=== PATIENT | female | born 1960 | race African-American/Black ===

== ENCOUNTER 2022-11-14 18:31 | Emergency (ER) | payer BC ==
--- OUTSIDE RECORDS SUMMARY | 2022-11-14 18:39 | XMS REPORT | Continuity of Care Document ---
:1960 Author Organization [facility] t Address [address] [place] [address] Care Team Providers Name Role Phone Elvi Jacobson Primary Care Physician JAYE BONE Attending Clinician Unavailable DELANO HOYOS Attending Clinician Unavailable [email or web address] Attending Clinician Unavailable Chio Holt Attending Clinician [phone] JAXON GIVENS Attending Clinician Unavailable JAYE BONE Attending Clinician Unavailable Linh Demarco Attending Clinician Unavailable MANOHAR SMILEY Attending Clinician Unavailable Baldev Osei MD, [facility] Attending Clinician Unavailable CIELO NEUMANN Attending Clinician Unavailable PROSPER RAMESH M.D. Attending Clinician Unavailable Prosper Ramesh Attending Clinician LATASHA DOW M.D. Attending Clinician Unavailable MAGUI, NEO, M.D. Attending Clinician Unavailable LIBERTAD VEE M.D. Attending Clinician Unavailable OLIVE SALES Attending Clinician Unavailable Libertad Vee Attending Clinician [email or web address] Admitting Clinician Unavailable Linh Demarco Admitting Clinician Unavailable Prosper Ramesh Admitting Clinician OLI BERGMAN WANG-HENRYTRESSA Admitting Clinician Unavail able Libertad Vee Admitting Clinician Payers Payer Name Policy Type Policy Number Effective Date Expiration Date S ource BCBSTX PPO AND [id number] 2021 2024 00:00:00 OUT OF STATE 00:00:00 [place] [id number] 2021 [place] 00:00:00 Problems Condition Condition Condition Status Onset Resolution Last Treating Co mments Source Name Details Category Date Date Treatment Clinician Date Anxiety Anxiety Problem Active [facility] 00:00: 00 Hypertensi Hypertensi Problem Active [facility] 9-14 Medical disorder Disorder 00:00: 00 Atrial Atrial Problem Active [facility] fibrillati Fibrillati 9-14 Me dical on on 00:00: 00 Irregular Irregular Problem Active [facility] via heart beat Heart Beat -14 Me dical 00:00: 00 Essential Essential Disease Active [facility] hypertens[facility] hypertensi 6-12 [facility] on on 00:00: Medical 00 Center GERD GERD Disease Active [facility] (gastroeso (gastroeso 6-12 Teresa kes phageal phageal 00:00: Medical reflux reflux 00 Center disease) disease) Obesity Obesity Disease Active [facility] Chest Chest Disease Active [facility] pain, pain, [facility] unspecifie unspecifie 00:00: Me dical d type d type 00 Center [id number], [id number], Diagnosis Active 2014-03-28 M emoria MORBID MORBID 03-07 14:45:00 l OBESITY OBESITY 00:00: [place] Active 03/07/2014 [facility] [place][note 2] History of History of Problem Resolve [facility] hypertensi hypertensi d Ph ysici on on ans History of History of Problem Resolve UT Joint pain Joint pain d Ph ysici ans History of History of Problem Resolve [facility] Reflux Reflux d Physici ans Status Status Problem Active [facility] post post Physici gastric gastric ans bypass for bypass for obesity obesity Vitamin Vitamin Problem Active UT deficiency deficiency Ph ysici ans Right knee Right knee Problem Active U T pain pain Physici ans Other tear Other tear Problem Active U T of lateral of lateral Ph ysici meniscus meniscus ans of right of right knee as knee as current current injury, injury, subsequent subsequent encounter encounter Primary Primary Problem Active [facility] localized localized Phys ici osteoarthr osteoarthr an s itis of itis of both knees both knees Malabsorpt Malabsorpt Problem Active U T ion ion Physici ans swelling swelling Problem Active 2014-04-01 Memoria in in 20:28:37 l legs(Confi legs(Confi He rmmark anthony rmed) rmed) Active Problem 04/01/2014 [facility] [place][note 2] Congestion Congestio Problem Active 2014-04-01 Memoria of throat n of 20:28:37 l (finding) throat Thomas (finding) Active Problem 04/01/2014 [facility] [place][note 2] Morbid Morbid Problem Active 2014-04-01 Hola lawrence obesity obesity 20:28:37 l (disorder) (disorder) He rmann Active Problem 04/01/2014 [facility] [place][note 2] Reflux Reflux Problem Active 2014-04-01 Mem oria (finding) (finding) 20:28:37 l Active Thomas Problem 04/01/2014 [facility] [place][note 2] Irregular Irregular Problem Active 2018-07-22 Memoria heart rate heart rate 04:01:11 l (finding) (finding) Herm mark anthony Active Problem 07/22/2018 [facility] Palpitatio Palpitati Problem Active 2018-07-22 Memoria ns ons 04:01:11 l (finding) (finding) Herm mark anthony Active Problem 07/22/2018 [facility] MORBID MORBID Diagnosis Active 2014-03-28 Me moria OBESITY OBESITY 14:45:00 l Active [facility] [place] History of Past Illness Condition Condition Condition Status Onset Resolution Last Treating Co mments Source Name Details Category Date Date Treatment Clinician Date Other tear Other Problem 2017-0 2018-07-22 2018-07-22 Memoria of medial tear of - 04:01:11 04:01:11 l meniscus, medial 05:00: Thomas current meniscus, 00 injury, current right injury, knee, right initial knee, encounter initial encounter 07/18/2018 8 [facility] Allergies, Adverse Reactions, Alerts Allergy Allergy Status Severity Reaction(s) Onset Inactive Treating Comm ents Source Name Type Date Date Clinician No Known DA Active U 2015- [facility]ie 7- [facility] NO KNOWN Allergy Active [facility] Social History Social Habit Start Date Stop Date Quantity Comments Source History SDOH [facility] Alcohol Frequency Medical Center History SDOH [facility] Alcohol Std Drinks Medica l Center History SDOH [facility] Alcohol Binge Medical [address] [facility] Alcohol intake 2018-04-21 2018-04-21 [facility]00 alcohol (finding) [facility] Center Tobacco use and 2018-04-18 2018-04-[address] [facility] kes exposure 00:00:00 00:00:00 Medical Center History SDOH 2018-04-18 2018-04-[address] [facility] Alcohol Comment 00:00:00 00:00:00 Medical C enter Sex Assigned At [address] [facility] 00:00:00 00:00:00 Medical Center Smoking Status Start Date Stop Date Source Social History [facility] Medications Ordered Filled Start Stop Current Ordering Indication Dosage Frequency Signature Comments Components Source Medication Medication Date Date Medication? Clinician (SIG) Name Name Sucralfate Sucralfate Yes KRISTY TAKE 1 UT 1 GM Oral 1 GM Oral 5-28 [facility] TABLET 4 Physici Tablet Tablet 00:00: TIMES ans 00 DAILY, BEFORE MEALS AND AT BEDTIME. Crush pill and add to 5 ml of water. Aspirin No 81 mg, Memoria 9-13 Tab-DR, l 14:00: Oral, Thomas 00 Daily, first dose 07/21/18 9:00:00 CDT, To help prevent blood clots unless you are already on a blood thinner Aspirin No 81 mg, Memoria 9-13 Tab-DR, l 14:00: Oral, [place] 00 Daily, first dose 07/21/18 9:00:00 CDT, To help prevent blood clots unless you are already on a blood thinner Misc 2018-0 No 900 mL, Memoria Medication 9-12 Soln-IV, l 15:27: IV, Once, first dose 07/20/18 10:27:00 CDT, stop date 07/20/18 10:27:00 CDT Misc 2018-0 No 900 mL, Memoria Medication - Soln-IV, l 15:27: IV, Once, first dose 07/20/18 10:27:00 CDT, stop date 07/20/18 10:27:00 CDT Demerol HCl 2018-0 No 12.5 mg = M emoria 9-12 0.5 mL, l 15:21: Injection, Thomas 00 IV Push, q5min PRN for Pain Mild (1-3), order duration: 4 doses, first dose 07/20/18 10:21:00 CDT, stop date Limited # of times Morphine 2018-0 No 1 mg = Memoria 9-12 0.25 mL, l 15:21: Injection, [place] 00 IV Push, q5min PRN for Pain Moderate (4-6), order duration: 5 doses, first dose 07/20/18 10:21:00 CDT, stop date Limited # of times Ondansetron 2018-0 No 4 mg = 2 Me moria 9-12 mL, l 15:21: Injection, Thomas 00 IV Push, q30min PRN for nausea/vom iting, order duration: 2 doses, first dose 07/20/18 10:21:00 CDT, stop date Limited # of times Demerol HCl 2018-0 No 12.5 mg = M emoria 9-12 0.5 mL, l 15:21: Injection, [place] 00 IV Push, q5min PRN for Pain Mild (1-3), order duration: 4 doses, first dose 07/20/18 10:21:00 CDT, stop date Limited # of times Morphine 2018-0 No 1 mg = Memoria 9-12 0.25 mL, l 15:21: Injection, Thomas 00 IV Push, q5min PRN for Pain Moderate (4-6), order duration: 5 doses, first dose 07/20/18 10:21:00 CDT, stop date Limited # of times Ondansetron 2018-0 No 4 mg = 2 Me moria 9-12 mL, l 15:21: Injection, [place] 00 IV Push, q30min PRN for nausea/vom iting, order duration: 2 doses, first dose 07/20/18 10:21:00 CDT, stop date Limited # of times neostigmine 2018-0 No 5 mg = 5 Me moria 9-12 mL, l 15:09: Injection, Thomas 00 IV, Once, first dose 07/20/18 10:09:00 CDT, stop date 07/20/18 10:09:00 CDT glycopyrrol 2018-0 No 0.8 mg = 4 Memoria ate 9-12 mL, l 15:09: Injection, [place] 00 IV, Once, first dose 07/20/18 10:09:00 CDT, stop date 07/20/18 10:09:00 CDT neostigmine 2018-0 No 5 mg = 5 Me moria 9-12 mL, l 15:09: Injection, [place] 00 IV, Once, first dose 07/20/18 10:09:00 CDT, stop date 07/20/18 10:09:00 CDT glycopyrrol 2018-0 No 0.8 mg = 4 Memoria ate 9-12 mL, l 15:09: Injection, [place] 00 IV, Once, first dose 07/20/18 10:09:00 CDT, stop date 07/20/18 10:09:00 CDT ketorolac 2018-0 No 30 mg = 1 Mem oria 9-12 mL, l 15:06: Injection, [place] 00 IV, Once, first dose 07/20/18 10:06:00 CDT, stop date 07/20/18 10:06:00 CDT ketorolac 2018-0 No 30 mg = 1 Mem oria 9-12 mL, l 15:06: Injection, Thomas 00 IV, Once, first dose 07/20/18 10:06:00 CDT, stop date 07/20/18 10:06:00 CDT ceFAZolin 2018-0 No 2 gm, Memoria 9-12 Soln-IV, l 14:34: IV, Once, [place] 00 first dose 07/20/18 9:34:00 CDT, stop date 07/20/18 9:34:00 CDT ceFAZolin 2018-0 No 2 gm, Memoria 12 Soln-IV, l 14:34: IV, Once, first dose 07/20/18 9:34:00 CDT, stop date 07/20/18 9:34:00 CDT ondansetron 2018-0 No 4 mg = 2 Me moria 9-12 mL, l 14:30: Injection, [place] 00 IV, Once, first dose 07/20/18 9:30:00 CDT, stop date 07/20/18 9:30:00 CDT dexamethaso 2018-0 No 4 mg = 1 Me moria ne 9-12 mL, l 14:30: Injection, [place] 00 IV, Once, first dose 07/20/18 9:30:00 CDT, stop date 07/20/18 9:30:00 CDT ondansetron 2018-0 No 4 mg = 2 Me moria 9-12 mL, l 14:30: Injection, [place] 00 IV, Once, first dose 07/20/18 9:30:00 CDT, stop date 07/20/18 9:30:00 CDT dexamethaso 2018-0 No 4 mg = 1 Me moria ne 9-12 mL, l 14:30: Injection, Thomas 00 IV, Once, first dose 07/20/18 9:30:00 CDT, stop date 07/20/18 9:30:00 CDT rocuronium 2018-0 No 30 mg = 3 Me moria 9-12 mL, l 14:25: Injection, [place] 00 IV, Once, first dose 07/20/18 9:25:00 CDT, stop date 07/20/18 9:25:00 CDT propofol 2018-0 No 200 mg = Memor ia 07-20 20 mL, l 14:25: Emulsion, Thomas 00 IV, Once, first dose 07/20/18 9:25:00 CDT, stop date 07/20/18 9:25:00 CDT lidocaine 2018-0 No 4 mL, Memoria 12 Injection, l 14:25: IV, Once, first dose 07/20/18 9:25:00 CDT, stop date 07/20/18 9:25:00 CDT fentaNYL 2018-0 No 100 mcg = Hola lawrence 9-12 2 mL, l 14:25: Injection, Thomas 00 IV, Once, first dose 07/20/18 9:25:00 CDT, stop date 07/20/18 9:25:00 CDT rocuronium 2018-0 No 30 mg = 3 Me moria 9-12 mL, l 14:25: Injection, [place] 00 IV, Once, first dose 07/20/18 9:25:00 CDT, stop date 07/20/18 9:25:00 CDT propofol 2018-0 No 200 mg = Memor ia 9-12 20 mL, l 14:25: Emulsion, [place] 00 IV, Once, first dose 07/20/18 9:25:00 CDT, stop date 07/20/18 9:25:00 CDT lidocaine 2018-0 No 4 mL, Memoria -12 Injection, l 14:25: IV, Once, Thomas 00 first dose 07/20/18 9:25:00 CDT, stop date 07/20/18 9:25:00 CDT fentaNYL 2018-0 No 100 mcg = Hola lawrence 9-12 2 mL, l 14:25: Injection, Thomas 00 IV, Once, first dose 07/20/18 9:25:00 CDT, stop date 07/20/18 9:25:00 CDT Acetaminoph 2018-0 Yes See Memori a en 300 MG / 12 Instructio l Codeine 14:15: ns, 1-2 Thomas Phosphate 00 Tab(s), 30 MG Oral PO, Every Tablet 4 hours, [Tylenol as needed with for pain, Codeine #3] # 20 tabs, 1 Refill(s) Acetaminoph 2018-0 Yes See Memori a en 300 MG / 912 Instructio l Codeine 14:15: ns, 1-2 [place] Phosphate 00 Tab(s), 30 MG Oral PO, Every Tablet 4 hours, [Tylenol as needed with for pain, Codeine #3] # 20 tabs, 1 Refill(s) fentaNYL 2018-0 No 100 mcg = Hola lawrence 9-12 2 mL, l 14:12: Injection, Thomas 00 IV, Once, first dose 07/20/18 9:12:00 CDT, stop date 07/20/18 9:12:00 CDT midazolam 2018-0 No 2 mg = 2 Hola lawrence 9-12 mL, l 14:12: Injection, [place] 00 IV, Once, first dose 07/20/18 9:12:00 CDT, stop date 07/20/18 9:12:00 CDT fentaNYL 2018-0 No 100 mcg = Hola lawrence 9-12 2 mL, l 14:12: Injection, Thomas 00 IV, Once, first dose 07/20/18 9:12:00 CDT, stop date 07/20/18 9:12:00 CDT midazolam 2018-0 No 2 mg = 2 Hola lawrence 9-12 mL, l 14:12: Injection, [place] 00 IV, Once, first dose 07/20/18 9:12:00 CDT, stop date 07/20/18 9:12:00 CDT Pain Ease 2018-0 No 1 sprays, Mem oria topical 9-12 [place], l spray 14:00: TOP, Once, Vinay n 00 first dose 07/20/18 9:00:00 CDT, stop date 07/20/18 9:00:00 CDT, Apply topically for 4 - 10 seconds from a distance of 3 - 7 inches from the procedure site Cefazolin 2018-0 No 2 gm, Memoria 9-12 Soln-IV, l 14:00: IV [place] 00 Piggyback, Once, infuse over 30 minutes, first dose 07/20/18 9:00:00 CDT, stop date 07/20/18 9:00:00 CDT, Prophylaxi s Pain Ease 2017-0 No 1 sprays, Mem oria topical 9-12 [place], l spray 14:00: TOP, Once, Vinay n 00 first dose 07/20/18 9:00:00 CDT, stop date 07/20/18 9:00:00 CDT, Apply topically for 4 - 10 seconds from a distance of 3 - 7 inches from the procedure site Cefazolin 2018-0 No 2 gm, Memoria 9-12 Soln-IV, l 14:00: IV Thomas 00 Piggyback, Once, infuse over 30 minutes, first dose 07/20/18 9:00:00 CDT, stop date 07/20/18 9:00:00 CDT, Prophylaxi s LR 1,000 mL No 1,000 mL, M emoria 9-12 IV, 100 l 13:12: mL/hr, Thomas 00 start date 07/20/18 8:12:00 CDT, For Adults LR 1,000 mL No 1,000 mL, M emoria 9-12 IV, 100 l 13:12: mL/hr, start date 07/20/18 8:12:00 CDT, For Adults Sucralfate Yes = 2 tsp, Mem oria 100 MG/ML 9-10 Oral, BID, l Oral 22:51: 0 Thomas Suspension 00 Refill(s) [Carafate] Sucralfate Yes = 2 tsp, Mem oria 100 MG/ML 9-10 Oral, BID, l Oral 22:51: 0 Thomas Suspension 00 Refill(s) [Carafate] Multi 2017-0 Yes Oral, TID, Memori a Vitamin+ 9-10 0 l 22:46: Refill(s) [place] calcium (as Yes 250 mg = 1 Memoria calcium 9-10 tabs, l citrate) 22:46: Oral, Thomas 250 mg oral 00 Daily, 0 tablet Refill(s) Multi 2017-0 Yes Oral, TID, Memori a Vitamin+ 9-10 0 l 22:46: Refill(s) Thomas 00 calcium (as 20180 Yes 250 mg = 1 Memoria calcium 9-10 tabs, l citrate) 22:46: Oral, Thomas 250 mg oral 00 Daily, 0 tablet Refill(s) Vitamin D3 2018-0 Yes Oral, Memori a 9-10 Daily, 0 l 22:45: Refill(s) Thomas Vitamin D3 2018-0 Yes Oral, Memori a 9-10 Daily, 0 l 22:45: Refill(s) [place] 00 [place]-3 2018-0 Yes Oral, BID, Hola lawrence oral 9-10 0 l capsule 22:44: Refill(s) Vaishali nn 00 Metoprolol 2017-0 Yes 12.5 mg, Mem oria 9-10 Oral, l 22:44: Daily, 0 Thomas 00 Refill(s) [place]-3 2018-0 Yes Oral, BID, Hola lawrence oral 9-10 0 l capsule 22:44: Refill(s) Vaishali nn 00 Metoprolol Yes 12.5 mg, Mem oria 9-10 Oral, l 22:44: Daily, 0 Thomas 00 Refill(s) pantoprazol Yes TAKE [address] [facility] 7-17 TABLET [facility] (PROTONIX) 00:00: MOUTH Medica l 40 MG 00 DAILY Center tablet pantoprazol Yes TAKE [address] [facility] 7-17 TABLET BY [facility] (PROTONIX) 00:00: MOUTH Medica l 40 MG 00 DAILY Center tablet pantoprazol Yes TAKE [address] [facility] 7-17 TABLET BY [facility] (PROTONIX) 00:00: MOUTH Medica l 40 MG 00 DAILY Center tablet Omeprazole Omeprazole Yes KRISTY 1 QD TAKE 1 UT 40 MG Oral 40 MG Oral 6-25 [facility] CAP[facility]LE Physici Capsule Capsule 00:00: DAILY for an s Delayed Delayed 00 3 months Release Release Carafate 1 Carafate 1 Yes LIBERTAD 10 Q0.25D TAKE 10 ML UT GM/10ML GM/10ML 6-25 PRIMOMO 4 TIMES Phy sici Oral Oral 00:00: M.D. DAILY ans Suspension Suspension 00 metoprolol Yes 50mg QD Take [address] (TOPROL-XL) 6-14 by mouth Luke s 50 MG 24 hr 07:27: daily. Medi margarette tablet [address] [place] [address] aspirin 81 Yes QD Take by [facility] mg Tab 6-14 [facility] 07:27: daily. [address] losartan Yes 25mg QD Take [address] (COZAAR) 25 6-14 by mouth Luke s MG tablet 07:27: daily. Medica l [address] [place] [address] spironolact Yes 25mg QD Take [address] one 6-14 by mouth [facility] (ALDACTONE) 07:27: daily. Medi margarette 25 MG [address] [place] tablet esomeprazol Yes 20mg QD Take [address] [facility] (NEXIUM) 6-14 by mouth [facility]ukes 20 MG 07:27: daily. Medical capsule [address] [place] [address] CALCIUM Yes Take by [facility] ACETATE 6-14 mouth. [facility] ORAL 07:27: [address] metoprolol Yes 50mg QD Take [address] (TOPROL-XL) 6-14 by mouth Luke s 50 MG 24 hr 07:27: daily. Medi margarette tablet [address] [place] [address] aspirin 81 2018-0 Yes QD Take by [facility] mg Tab 6-14 [facility] 07:27: daily. [address] losartan 2018-0 Yes 25mg QD Take [address] (COZAAR) 25 6-14 by mouth Luke s MG tablet 07:27: daily. Medica l [address] [place] [address] spironolact 2018-0 Yes 25mg QD Take [address] one 6-14 by mouth [facility] (ALDACTONE) 07:27: daily. Medi margarette 25 MG [address] [place] tablet esomeprazol 2018-0 Yes 20mg QD Take [address] [facility] (NEXIUM) 6-14 by mouth [facility]ukes 20 MG 07:27: daily. [address] CALCIUM 0 Yes Take by [facility] ACETATE 6-14 mouth. [facility] ORAL 07:27: [address] metoprolol 2018-0 Yes 50mg QD Take [address] (TOPROL-XL) 6-14 by mouth Luke s 50 MG 24 hr 07:27: daily. Medi margarette tablet [address] [place] [address] aspirin 81 0 Yes QD Take by [facility] mg Tab 6-14 [facility] 07:27: daily. [address] losartan 2018-0 Yes 25mg QD Take [address] (COZAAR) 25 6-14 by mouth Luke s MG tablet 07:27: daily. Medica [address] spironolact 2018-0 Yes 25mg QD Take [address] one 6-14 by mouth [facility] (ALDACTONE) 07:27: daily. Medi margarette 25 MG [address] [place] tablet esomeprazol 2018-0 Yes 20mg QD Take [address] [facility] (NEXIUM) 6-14 by mouth [facility]ukes 20 MG 07:27: daily. [facility] capsule [address] [place] [address] CALCIUM 2017-0 Yes Take by [facility] ACETATE 6-14 mouth. [facility]ukes ORAL 07:27: [address] aspirin 81 2018-0 Yes 81mg QD Take [address] MG EC 6-13 by mouth [facility]ukes tablet 12:27: daily. [address] multivitami 2018-0 Yes 1{tbl} QD Take [address] [facility] 6-13 tablet by [facility]ukes (MULTIVITAM 12:27: mouth Medic al IN) per 35 daily. Center tablet calcium 2018-0 Yes 1{tbl} Take [address] carbonate-v 6-13 tablet by Betsy es itamin D3 12:27: mouth 2 Medic al (CALCIUM- 35 (two) Center TAMIN D) times 500 daily with mg(1,250mg) breakfast -200 unit and per tablet dinner. omega-3 2018-0 Yes 2g Q.5D Take [address] fatty 6-13 by mouth 2 [facility] acids-fish 12:27: (two) Medica l oil 35 times Center 340-1,000 daily. mg Cap per capsule aspirin 81 2018-0 Yes 81mg QD Take [address] MG EC 6-13 by mouth [facility]ukes tablet 12:27: daily. [address] multivitami Yes 1{tbl} QD Take [address] n 6-13 tablet by [facility]ukes (MULTIVITAM 12:27: mouth Medic al IN) per 35 daily. [place] tablet calcium 0 Yes 1{tbl} Take [address] carbonate-v 6-13 tablet by Betsy es itamin D3 12:27: mouth 2 Medic al (CALCIUM- 35 (two) Center TAMIN D) times 500 daily with mg(1,250mg) breakfast -200 unit and per tablet dinner. omega-3 2018-0 Yes 2g Q.5D Take [address] fatty 6-13 by mouth 2 [facility] acids-fish 12:27: (two) Medica l oil 35 times Center 340-1,000 daily. mg Cap per capsule aspirin 81 2018-0 Yes 81mg QD Take [address] MG EC 6-13 by mouth [facility]ukes tablet 12:27: daily. [address] multivitami 0 Yes 1{tbl} QD Take [address] n 6-13 tablet by [facility]ukes (MULTIVITAM 12:27: mouth Medic al IN) per 35 daily. [place] tablet calcium 2018-0 Yes 1{tbl} Take [address] carbonate-v 6-13 tablet by Betsy es itamin D3 12:27: mouth 2 Medic al (CALCIUM- 35 (two) Center TAMIN D) times 500 daily with mg(1,250mg) breakfast -200 unit and per tablet dinner. omega-3 2018-0 Yes 2g Q.5D Take [address] fatty 6-13 by mouth 2 [facility] acids-fish 12:27: (two) Medica l oil 35 times Center 340-1,000 daily. mg Cap per capsule metoprolol Yes TK [address] (TOPROL-XL) 5-21 ONCE D [facility] 25 MG 24 hr 00:00: Medica l tablet 00 Center metoprolol Yes TK [address] [facility] [address] [facility] (TOPROL-XL) 5-21 ONCE D [facility] 25 MG 24 hr 00:00: Medica l tablet 00 Center metoprolol Yes TK [address] [facility] (TOPROL-XL) 5-21 ONCE D [facility] 25 MG 24 hr 00:00: Medica l tablet 00 [place] Magnesium Magnesium Yes LIBERTAD Take 400mg UT 400 MG CAPS 400 MG CAPS 8-13 PRIMOMO QD x 7 Physici 00:00: M.D. days Acetaminoph Yes 15 ml, PO, Memoria en 21.7 5-23 Q4H, Pain, l MG/ML / 14:37: # 240 mL, Vaishali nn Hydrocodone 00 0 Bitartrate Refill(s) 0.5 MG/ML Oral Solution Acetaminoph Yes 15 ml, PO, Memoria en 21.7 5-23 Q4H, Pain, l MG/ML / 14:37: # 240 mL, Vaishali nn Hydrocodone 00 0 Bitartrate Refill(s) 0.5 MG/ML Oral Solution Enoxaparin No Notes: Memor ia 5-22 (Same as: l 05:29: Lovenox) Enoxaparin No Notes: Memor ia 5-22 (Same as: l 05:29: Lovenox) Ketorolac No 4 days Memor ia 5-21 l 23:00: Ketorolac No 4 days Memor ia 5-21 l 23:00: Hydromorpho No 6 mg, 30 Me moria ne 5-21 mL, Route: l 17:30: IV, STAFFING ADMINISTRATOR Dose: 0.2 mg, STAFFING ADMINISTRATOR Lockout: 10 minutes, 4 Hour Limit (In MG): 4, Drug Form: INJ, Continuous , Start date: 03/28/14 12:30:00, Duration: 30 day, Stop date: 04/27/14 12:29:00 Hydromorpho No 6 mg, 30 Me moria ne 5-21 mL, Route: l 17:30: IV, STAFFING ADMINISTRATOR Dose: 0.2 mg, STAFFING ADMINISTRATOR Lockout: 10 minutes, 4 Hour Limit (In MG): 4, Drug Form: INJ, Continuous , Start date: 03/28/14 12:30:00, Duration: 30 day, Stop date: 04/27/14 12:29:00 Acetaminoph No Notes: Do M emoria en 33.3 - not exceed l MG/ML / 17:28: 4gm/day of Herm mark anthony Hydrocodone 00 acetaminop Bitartrate hen. (Same 0.5 MG/ML as: [place] Oral 325/7.5) Solution [Lortab 7.5/500] Lactated No 1,000 mL, Hola lawrence Ringers IV 03-28 Rate: 80 l 1,000 mL 17:28: ml/hr, Infuse over: 12.5 hr, Route: IV, Dosing Weight 159.744 kg, Total Volume: 1,000, Priority: STAT, Start date: 03/28/14 12:28:00, Duration: 30 day, Stop date: 04/27/14 12:27:00 Calcium No 1,000 mL, Memor ia Chloride 03-28 Rate: 125 l 0.0014 17:28: ml/hr, MEQ/ML / 00 Infuse Potassium over: 8 Chloride hr, Route: 0.004 IV, Dosing MEQ/ML / Weight Sodium 159.744 Chloride kg, Total 0.103 Volume: MEQ/ML / 1,000, Sodium Start Lactate date: 0.028 03/28/14 MEQ/ML 12:28:00, Injectable Duration: Solution 30 day, Stop date: 04/27/14 12:27:00 Ondansetron No Notes: Hola lawrence 5-21 (Same as: l 17:28: Zofran) Thomas Promethazin No Notes: Do M emoria e -21 not give l 17:28: IV push. Thomas 00 (Same as: Phenergan) Acetaminoph No Notes: Max Memoria en -21 acetaminop l 17:28: hen = 4000 Thomas 00 mg/day (4 gm/day). (Same as: Tylenol) Acetaminoph No Notes: Do M emoria en 33.3 03-28 not exceed l MG/ML / 17:28: 4gm/day of Herm mark anthony Hydrocodone 00 acetaminop Bitartrate hen. (Same 0.5 MG/ML as: [place] Oral 325/7.5) Solution [Lortab 7.5/500] Lactated No 1,000 mL, Hola lawrence Ringers IV 03-28 Rate: 80 l 1,000 mL 17:28: ml/hr, Thomas Infuse over: 12.5 hr, Route: IV, Dosing Weight 159.744 kg, Total Volume: 1,000, Priority: STAT, Start date: 03/28/14 12:28:00, Duration: 30 day, Stop date: 04/27/14 12:27:00 Calcium No 1,000 mL, Memor ia Chloride 03-28 Rate: 125 l 0.0014 17:28: ml/hr, Thomas MEQ/ML / 00 Infuse Potassium over: 8 Chloride hr, Route: 0.004 IV, Dosing MEQ/ML / Weight Sodium 159.744 Chloride kg, Total 0.103 Volume: MEQ/ML / 1,000, Sodium Start Lactate date: 0.028 03/28/14 MEQ/ML 12:28:00, Injectable Duration: Solution 30 day, Stop date: 04/27/14 12:27:00 Ondansetron No Notes: Hola lawrence -21 (Same as: l 17:28: Zofran) Thomas Promethazin No Notes: Do M emoria e 03-28 not give l 17:28: IV push. [place] 00 (Same as: Phenergan) Acetaminoph No Notes: Max Memoria en -21 acetaminop l 17:28: hen = 4000 [place] 00 mg/day (4 gm/day). (Same as: Tylenol) Acetaminoph No Notes: Hola lawrence en 5-21 Infuse l 13:44: over 15 Thomas 00 minutes Do not exceed 4gm/day of acetaminop hen Labetalol No Notes: Memori a 5-21 (Same as: l 13:44: Normodyne, [place] 00 Trandate) Push over 2 minutes Give bolus over 2-3 minutes. Ondansetron No Notes: Hola lawrence 5-21 (Same as: l 13:44: Zofran) [place] Albuterol No Notes: SEE Me moria 0.83 MG/ML 5-21 RT l Inhalant 13:44: DOCUMENTAT Her chatman Solution 00 ION (Same as: Proventil) Naloxone No Notes: Memoria 5-21 Same as l 13:44: Narcan [place] Flumazenil No Notes: Memor ia 5-21 (Same as: l 13:44: Romazicon) Thomas Ketorolac No 4 days Memor ia 5-21 l 13:44: [place] 00 Morphine No Notes: Memoria 5-21 (Same as: l 13:44: MORPhine Thomas 00 Sulfate) Hydromorpho No Notes: Hola lawrence ne -21 (Same as: l 13:44: Dilaudid) Thomas Calcium No 1,000 mL, [facility]or ia Chloride - Rate: 125 l 0.0014 13:44: ml/hr, [place] MEQ/ML / 00 Infuse Potassium over: 8 Chloride hr, Route: 0.004 IV, Dosing MEQ/ML / Weight Sodium 159.744 Chloride kg, Total 0.103 Volume: MEQ/ML / 1,000, Sodium Start Lactate date: 0.028 03/28/14 MEQ/ML 8:44:00, Injectable Duration: Solution 30 day, Stop date: 04/27/14 8:43:00 Acetaminoph No Notes: Hola lawrence en 5-21 Infuse l 13:44: over 15 [place] 00 minutes Do not exceed 4gm/day of acetaminop hen Labetalol No Notes: Memori a 5-21 (Same as: l 13:44: Normodyne, Thomas 00 Trandate) Push over 2 minutes Give bolus over 2-3 minutes. Ondansetron No Notes: Hola lawrence -21 (Same as: l 13:44: Zofran) Albuterol No Notes: SEE Me moria 0.83 MG/ML - RT l Inhalant 13:44: DOCUMENTAT Her chatman Solution 00 ION (Same as: Proventil) Naloxone No Notes: Memoria - Same as l 13:44: Narcan Flumazenil No Notes: Memor ia -21 (Same as: l 13:44: Romazicon) Ketorolac No 4 days Mem[facility] ia -21 l 13:44: [place] 00 Morphine No Notes: Memoria -21 (Same as: l 13:44: MORPhine Sulfate) Hydromorpho No Notes: Hola lawrence ne - (Same as: l 13:44: Dilaudid) Calcium No 1,000 mL, [facility] Chloride 03-28 Rate: 125 l 0.0014 13:44: ml/hr, [place] MEQ/ML / 00 Infuse Potassium over: 8 Chloride hr, Route: 0.004 IV, Dosing MEQ/ML / Weight Sodium 159.744 Chloride kg, Total 0.103 Volume: MEQ/ML / 1,000, Sodium Start Lactate date: 0.03/28/14 MEQ/ML 8:44:00, Injectable Duration: Solution 30 day, Stop date: 04/27/14 8:43:00 Ancef No Notes: Memoria 5-21 Same as: l 04:00: Ancef [place] Ancef No Notes: Memoria 5-21 Same as: l 04:00: Ancef Thomas 00 Multi Multi No Multi [facility] Vitamin 9 Vitamin 9 Vitamin 9 Medical mg iron/15 mg iron/15 mg iron/15 mL oral mL oral mL oral liquid Take liquid Take liquid by oral by oral Take by route. route. oral route. naproxen naproxen No naproxen Monica via 500 mg 500 mg 500 mg Medical tablet TAKE tablet TAKE tablet 1 TABLET BY 1 TABLET BY TAKE 1 MOUTH TWICE MOUTH TWICE TABLET BY DAILY FOR DAILY FOR MOUTH 15 DAYS 15 DAYS TWICE NEEDED FOR NEEDED FOR DAILY FOR PAIN PAIN 15 DAYS NEEDED FOR PAIN Nature-Thro Nature-Thro No Nature-Thr [facility] id 65 mg id 65 mg oid 65 mg Me dical tablet TAKE tablet TAKE tablet 1 TABLET BY 1 TABLET BY TAKE 1 MOUTH EVERY MOUTH EVERY TABLET BY DAY DAY MOUTH EVERY DAY omeprazole omeprazole No omeprazole [facility] 40 mg 40 mg 40 mg Medical capsule,del capsule,del capsule,de ayed ayed layed release release release TAKE 1 TAKE 1 TAKE 1 CAPSULE PRN CAPSULE PRN CAPSULE PRN prednisone prednisone No prednisone [facility] 20 mg 20 mg 20 mg Medical tablet tablet tablet sucralfate sucralfate No sucralfate [facility] 1 gram 1 gram 1 gram Medical tablet tablet tablet thiamine thiamine No thiamine Monica via HCl HCl HCl Medical (vitamin (vitamin (vitamin B1) 50 mg B1) 50 mg B1) 50 mg tablet TAKE tablet TAKE tablet 1 TABLET BY 1 TABLET BY TAKE 1 MOUTH DAILY MOUTH DAILY TABLET BY MOUTH DAILY tramadol tramadol No tramadol Monica via 37.5 37.5 37.5 Medical mg-acetamin mg-acetamin mg-acetami ophen 325 ophen 325 nophen 325 mg tablet mg tablet mg tablet TK 1 T PO Q TK 1 T PO Q TK 1 T PO 4 H PRN 4 H PRN Q 4 H PRN Metoprolol Metoprolol Yes UT Tartrate 25 Tartrate 25 P hysici MG Oral MG Oral ans Tablet Tablet Spironolact Spironolact Yes U T one 25 MG one 25 MG Physi ci Oral Tablet Oral Tablet a ns Pantoprazol Pantoprazol Yes U T e Sodium 40 e Sodium 40 P hysici MG Oral MG Oral ans Tablet Tablet Delayed Delayed Release Release aspirin aspirin No aspirin [facility] benzonatate benzonatate No benzonatat [facility] 100 mg 100 mg e 100 mg Medical capsule capsule capsule TAKE 1 TAKE 1 TAKE 1 CAPSULE BY CAPSULE BY CAPSULE BY MOUTH THREE MOUTH THREE MOUTH TIMES DAILY TIMES DAILY THREE NEEDED NEEDED TIMES FOR COUGH FOR COUGH DAILY NEEDED FOR COUGH calcium calcium No calcium [facility] 166.75 166.75 166.75 Medical mg-vit D3 mg-vit D3 mg-vit D3 166.75 166.75 166.75 unit-vit unit-vit unit-vit C-vit C-vit C-vit K2-minerals K2-minerals K2-mineral capsule capsule s capsule Take by Take by Take by oral route. oral route. oral route. cetirizine cetirizine No cetirizine [facility] 10 mg 10 mg 10 mg Medical tablet TAKE tablet TAKE tablet 1 TABLET BY 1 TABLET BY TAKE 1 MOUTH EVERY MOUTH EVERY TABLET BY DAY DAY MOUTH EVERY DAY Flonase Flonase No Flonase [facility] All[facility] Allergy Allergy Medica l Relief 50 Relief 50 Relief 50 mcg/actuati mcg/actuati mcg/actuat on nasal on nasal ion nasal spray,suspe spray,suspe spray,susp nsion USE 1 nsion USE 1 ension USE SPRAY IN SPRAY IN 1 SPRAY IN EACH EACH EACH NOSTRIL NOSTRIL NOSTRIL ONCE DAILY ONCE DAILY ONCE DAILY hydrocodone hydrocodone No hydrocodon [facility] 5 5 e 5 Medical mg-acetamin mg-acetamin mg-acetami ophen 325 ophen 325 nophen 325 mg tablet mg tablet mg tablet TAKE 1-2 TAKE 1-2 TAKE 1-2 TABLETS BY TABLETS BY TABLETS BY MOUTH EVERY MOUTH EVERY MOUTH 4-6 HOURS 4-6 HOURS EVERY 4-6 NEEDED NEEDED HOURS FOR PAIN FOR PAIN NEEDED FOR PAIN ipratropium ipratropium No ipratropiu [facility] bromide 42 bromide 42 m bromide Medical mcg (0.06 mcg (0.06 42 mcg %) nasal %) nasal (0.06 %) spray USE 1 spray USE 1 nasal SPRAY IN SPRAY IN spray USE EACH EACH 1 SPRAY IN NOSTRIL NOSTRIL EACH THREE TIMES THREE TIMES NOSTRIL DAILY FOR 5 DAILY FOR 5 THREE DAYS DAYS TIMES DAILY FOR 5 DAYS losartan losartan No losartan Monica via Medical methylpredn methylpredn No methylpred [facility] isolone 4 isolone 4 nisolone 4 Medical mg tablets mg tablets mg tablets in a dose in a dose in a dose pack FOLLOW pack FOLLOW pack PACKAGE PACKAGE FOLLOW DIRECTIONS DIRECTIONS PACKAGE DIRECTIONS metoprolol metoprolol No metoprolol [facility] succinate succinate succinate Medical ER 25 mg ER 25 mg ER 25 mg tablet,exte tablet,exte tablet,ext nded nded ended release 24 release 24 release 24 hr TAKE 1/2 hr TAKE 1/2 hr TAKE TABLET BY TABLET BY 1/2 TABLET MOUTH EVERY MOUTH EVERY BY MOUTH DAY DAY EVERY DAY Immunizations Ordered Immunization Filled Immunization Date Status Commlevi humphrey Source Name Name pneumococcal 2013-08-08 Completed [facility] 23-valent vaccine 20:02:00 [place] pneumococcal 2013-08-08 Completed [facility] 23-valent vaccine 20:02:00 [place] Vital Signs Vital Name Observation Time Observation Value Comments Source BP Diastolic 2022-07-22 00:00:00 79 mm[Hg] [facility] Height 2022-07-22 00:00:00 69 [in_i] [facility] BMI (Body Mass Index) 2022-07-22 00:00:00 36.9 kg/m2 [facility] BP Systolic 2022-07-22 00:00:00 121 mm[Hg] [facility] Body Weight 2022-07-22 00:00:00 3996.8 [oz_av] [facility] Height 2019-01-10 15:23:00 66 [in_us] [facility] Weight 2019-01-10 15:23:00 267 [lb_av] [facility] Body Mass Index 2019-01-10 15:23:00 43.1 kg/m2 [facility] Calculated Respitory Rate 2018-07-20 16:00:00 Memori al [place] Systolic (mm Hg) 2018-07-20 16:00:00 Hola rial [place] Diastolic (mm Hg) 2018-07-20 16:00:00 Mem orial [facility] Heart Rate 2018-07-20 16:00:00 [facility] [place] Systolic (mm Hg) 2018-07-20 15:55:00 Hola rial [place] Diastolic (mm Hg) 2018-07-20 15:55:00 Mem orial [place] Respitory Rate 2018-07-20 15:55:00 Memori al [place] Heart Rate 2018-07-20 15:55:00 [facility] [place] Respitory Rate 2018-07-20 15:50:00 Memori al [place] Heart Rate 2018-07-20 15:50:00 [facility] [place] Systolic (mm Hg) 2018-07-20 15:50:00 Hola rial [place] Diastolic (mm Hg) 2018-07-20 15:50:00 Mem orial [place] Temperature Oral (F) 2018-07-20 15:20:00 36.2 Elana [facility] [place] Temperature Oral (F) 2018-07-20 13:21:00 36.6 Elana [facility] Height 2018-07-20 13:21:00 172.72 cm [facility] Height 2018-07-18 22:38:00 172.72 cm [facility] [place] Temperature Oral (F) 2018-07-18 22:38:00 36.4 Elana [facility] Respitory Rate 2014-03-30 13:00:00 Memori al [facility] Heart Rate 2014-03-30 13:00:00 [facility] Diastolic (mm Hg) 2014-03-30 13:00:00 Mem orial [place] Systolic (mm Hg) 2014-03-30 13:00:00 Hola rial [facility] Temperature Oral (F) 2014-03-30 13:00:00 98.2 F [facility] Temperature Oral (F) 2014-03-30 09:00:00 97.9 F [facility] Heart Rate 2014-03-30 09:00:00 [facility] [place] Systolic (mm Hg) 2014-03-30 09:00:00 Hola rial [facility] Respitory Rate 2014-03-30 09:00:00 Memori al [place] Diastolic (mm Hg) 2014-03-30 09:00:00 Mem orial [place] Temperature Oral (F) 2014-03-30 05:00:00 97.7 F [facility] Diastolic (mm Hg) 2014-03-30 05:00:00 Mem orial [facility] Heart Rate 2014-03-30 05:00:00 [facility] Systolic (mm Hg) 2014-03-30 05:00:00 Hola rial [place] Respitory Rate 2014-03-30 05:00:00 Cristian cummings Thomas Height 2014-03-14 15:09:00 175.26 cm [facility] [place] Weight 2014-03-14 15:09:00 [facility] [place] BMI Calculated 2014-03-14 15:09:00 Cristian cummings [place] Procedures Procedure Date / Time Performing Source Performed Clinician MAMMO, tomosynthesis 2022-07-22 [facility] 00:00:00 [QH] VITAMIN K 2019-03-28 [facility] 00:00:00 [QLH] ALBUMIN 2019-03-28 [facility] 00:00:00 [QLH] CBC (INCLUDES DIFF/PLT) 2019-03-28 [facility] 00:00:00 [QLH] CMP W/EGFR 2019-03-28 [facility] 00:00:00 [QLH] FERRITIN 2019-03-28 [facility] 00:00:00 [QLH] FOLATE, SERUM 2019-03-28 Physician s 00:00:00 [QLH] HEMOGLOBIN A1c 2019-03-28 [facility] 00:00:00 [QLH] IRON, TOTAL 2019-03-28 [facility] 00:00:00 [QLH] LIPID PANEL 2019-03-28 [facility] 00:00:00 [QLH] MAGNESIUM 2019-03-28 [facility] 00:00:00 [QLH] PREALBUMIN 2019-03-28 [facility] 00:00:00 [QLH] PTH, INTACT (WITHOUT 2019-03-28 [facility] CALCIUM) 00:00:00 [QLH] TSH, 3RD GENERATION 2019-03-28 [facility] 00:00:00 [QLH] VITAMIN A (RETINOL) 2019-03-28 [facility] sicians 00:00:00 [QLH] VITAMIN B1, WHOLE BLOOD 2019-03-28 [facility] 00:00:00 [QLH] VITAMIN B12 2019-03-28 [facility] 00:00:00 [QLH] VITAMIN D, 25-HYDROXY, 2019-03-28 [facility] LC/MS/MS 00:00:00 [QLH] VITAMIN E (TOCOPHEROL) 2019-03-28 [facility] 00:00:00 [QLH] Zinc Lvl 2019-03-28 [facility] 00:00:00 Anterior Colporrhaphy 2016-05-20 [facility] 00:00:00 Hysterectomy (Ovaries Remain) 2016-05-20 [facility] 00:00:00 Colonoscopy 2013-11-08 [facility] 00:00:00 Repair Bladder Defect [facility] Other [facility] Tubal Ligation [facility] Cholecystectomy (Gallbladder) [facility] History of Arthroscopy Knee Right [facility] Arthroscopy of knee<sup>1</sup> [facility] Bilateral tubal ligation Memoria l [place] Bladder<sup>2, 3</sup> [facility] Cholecystectomy [facility] Esophagogastroduodenoscopy [facility] ial [facility]in[facility] gastric bypass [facility] [place] knee arthroscopy x4 [facility] chatman partial hysterectomy [facility] tubal [facility] Plan of Care Planned Activity Planned Date Details Comments Source Future Scheduled Test 2029-03-22 DTAP/TDAP/TD VACCINES ([address] [facility] 00:00:00 - Td or Tdap) [code = Medica l Center DTAP/TDAP/TD VACCINES (3 - Td or Tdap)] Future Scheduled Test 2029-03-22 DTAP/TDAP/TD VACCINES ([address] [facility] 00:00:00 - Td or Tdap) [code = Medica l Center DTAP/TDAP/TD VACCINES (3 - Td or Tdap)] Future Scheduled Test 2029-03-22 DTAP/TDAP/TD VACCINES ([address] [facility] 00:00:00 - Td or Tdap) [code = Medica l Center DTAP/TDAP/TD VACCINES (3 - Td or Tdap)] Future Scheduled Test 2022-11-[address] [facility] 00:00:00 (12+) [code = DEPRESSION [facility] SCREENING (12+)] Diagnostic Test 2022-07-22 lipid panel, serum [code [facility] Pending 00:00:00 = lipid panel, serum] Diagnostic Test 2022-07-22 Pyridoxine congeners [facility] Pending 00:00:00 [Mass/volume] in Serum or Plasma [code = 2901-7] Diagnostic Test 2022-07-22 TSH, serum or plasma [facility] Pending 00:00:00 [code = TSH, serum or plasma] Diagnostic Test 2022-07-22 T3, free, serum or [facility] Pending 00:00:00 plasma [code = T3, free, serum or plasma] Diagnostic Test 2022-07-22 TSH + free T4, serum [facility] Pending 00:00:00 [code = TSH + free T4, serum] Diagnostic Test 2022-07-22 vitamin D, 25-hydroxy, [facility] Pending 00:00:00 total, serum [code = vitamin D, 25-hydroxy, total, serum] Diagnostic Test 2022-07-22 HORTENSIA (antinuclear [facility] Pending 00:00:00 antibodies) screen, ifa, serum [code = HORTENSIA (antinuclear antibodies) screen, ifa, serum] Diagnostic Test 2022-07-22 Cytomegalovirus Ab [facility] Pending 00:00:00 [Titer] in Serum or Plasma by Latex agglutination [code = 5121-9] Diagnostic Test 2022-07-22 Weight of 24 hour [facility] Pending 00:00:00 Specimen [code = 3153-4] Diagnostic Test 2022-07-22 unlisted lab [code = [facility] Pending 00:00:00 unlisted lab] Future Scheduled Test 2022-07-09 INFLUENZA VACCINE (#1) [facility] 00:00:00 [code = INFLUENZA Medical Ce nter VACCINE (#1)] Future Scheduled Test 2021-07-09 INFLUENZA VACCINE (#1) [facility] 00:00:00 [code = INFLUENZA Medical Ce nter VACCINE (#1)] Future Scheduled Test 2021-07-09 INFLUENZA VACCINE (#1) [facility] 00:00:00 [code = INFLUENZA Medical Ce nter VACCINE (#1)] Future Scheduled Test 2021-04-19 Lipid panel (procedure) [facility] 00:00:00 [code = 71238488] Medical Ce nter Future Scheduled Test 2021-04-19 Lipid panel (procedure) [facility] 00:00:00 [code = 97960900] Medical Ce nter Future Scheduled Test 2021-04-19 Lipid panel (procedure) [facility] 00:00:00 [code = 36628095] Medical Ce nter Future Scheduled Test 2020-11-[address] [facility] 00:00:00 (12+) [code = DEPRESSION Med ical Center SCREENING (12+)] Future Scheduled Test 2020-11-[address] [facility] 00:00:00 (12+) [code = DEPRESSION Med ical Center SCREENING (12+)] Future Scheduled Test 2012 SHINGLES VACCINES ([address] [facility] 00:00:00 2) [code = SHINGLES Medical Center VACCINES (1 of 2)] Future Scheduled Test 2012 SHINGLES VACCINES ([address] [facility] 00:00:00 2) [code = SHINGLES Medical Center VACCINES (1 of 2)] Future Scheduled Test 2012 SHINGLES VACCINES ([address] [facility] 00:00:00 2) [code = SHINGLES Medical Center VACCINES (1 of 2)] Future Scheduled Test 1983 Screening for malignant [facility] 00:00:00 neoplasm of cervix Medical C enter (procedure) [code = 422443402] Future Scheduled Test 1983 Screening for malignant [facility] 00:00:00 neoplasm of cervix Medical C enter (procedure) [code = 342879572] Future Scheduled Test 1983 Screening for malignant [facility] 00:00:00 neoplasm of cervix Medical C enter (procedure) [code = 309806519] Future Scheduled Test 1980 HEPATITIS C SCREENING [facility] 00:00:00 [code = HEPATITIS C Medical Center SCREENING] Future Scheduled Test 1980 HEPATITIS C SCREENING [facility] 00:00:00 [code = HEPATITIS C Medical Center SCREENING] Future Scheduled Test 1980 HEPATITIS C SCREENING [facility] 00:00:00 [code = HEPATITIS C Medical Center SCREENING] Future Scheduled Test 1974 COVID-19 VACCINE (1) [facility] 00:00:00 [code = COVID-19 VACCINE Med ical Center (1)] Future Scheduled Test 1974 COVID-19 VACCINE (1) [facility] 00:00:00 [code = COVID-19 VACCINE Med ical Center (1)] Future Scheduled Test [address] [facility] 00:[facility]00 Counseling and Screening Med ical Center (12+) [code = Tobacco Cessation Counseling and Screening (12+)] Future Scheduled Test 1963-05-30 COVID-19 VACCINE (#1) [facility] 00:00:00 [code = COVID-19 VACCINE Med ical Center (#1)] Future Scheduled Test 1962 Screening for malignant [facility] 00:00:00 neoplasm of breast Medical C enter (procedure) [code = 518353544] Future Scheduled Test 1962 Screening for malignant [facility] 00:00:00 neoplasm of colon Medical Ce nter (procedure) [code = 560218810] Future Scheduled Test 1962 Screening for malignant [facility] 00:00:00 neoplasm of breast Medical C enter (procedure) [code = 217456233] Future Scheduled Test 1962 Screening for malignant [facility] 00:00:00 neoplasm of colon Medical Ce nter (procedure) [code = 571169936] Future Scheduled Test 1962 Screening for malignant [facility] 00:00:00 neoplasm of breast Medical C enter (procedure) [code = 532488292] Future Scheduled Test 1962 CT Colonography (combo) [facility] 00:00:00 [code = CT Colonography [facility] (combo)] Future Scheduled Test 1962 Screening for malignant [facility] 00:00:00 neoplasm of colon Medical Ce nter (procedure) [code = 987679046] Future Scheduled Test 1962 Screening for malignant [facility] 00:00:00 neoplasm of colon Medical Ce nter (procedure) [code = 847265431] Future Scheduled Test 1962 Screening for malignant [facility] 00:00:00 neoplasm of colon Medical Ce nter (procedure) [code = 903129023] Future Scheduled Test 1962 Screening for malignant [facility] 00:00:00 neoplasm of colon Medical Ce nter (procedure) [code = 005333691] Future Scheduled Test 1962 Sigmoidoscopy [code = [facility] 00:00:00 Sigmoidoscopy] Medical Lisandra r Future Appointment 2023-07-22 Ken Henson, [address] [facility] 11:30:00 [place] [address] Instructions [facility] Encounters Start End Encounter Admission Attending Care Care Encounter Source Date/Time Date/Time Type Type Clinicians Facility Department ID 2022-05-01 Outpatient LIZANDRO, [facility] [id number] [place] 01:04:25 JAYE [id number] [facility] 2022-03-23 Outpatient [facility] [id number] [place] 11:15:37 [id number] [facility] 2022-02-24 Outpatient ROMAIN, [facility] [id number] [place] 08:32:19 DELANO [id number] [facility] 2022-07-22 2022-07-22 Outpatient REJI_BRIAN_Sixto PRIV PRIV [id number] [facility] 00:00:00 00:00:00 _N [id number] Medica l 2022-07-22 2022-07-22 Outpatient Jonathon, PRIV PRIV [id number] 00:00:00 00:00:00 [facility] [id number] 2022-07-22 2022-07-22 Chio [facility] 14 [facility] 00:00:00 00:00:00 [facility] TELEVISION WRITER: [id number] REJI_CANDELARIO_[facility] [address] [facility], Office* [place] [address] , Ph. 2022-07-21 2022-07-21 Outpatient REJI_BRIAN_Wilfridod PRIV PRIV [facility] [id number] [facility] 00:00:00 00:00:00 _N [id number] Medica l 2022-07-20 2022-07-20 Outpatient GC_BRIAN_Boyd PRIV PRIV [facility] [id number] [facility] 00:00:00 00:00:00 _N [id number] Medica l 2022-06-25 2022-06-25 Emergency BIANCA LINDSAYNE [id number] MHNE 04:52:00 06:12:00 LIPING 2022-05-25 2022-05-25 Outpatient REJI_BRIAN_Wilfridod PRIV PRIV [facility] [id number] [facility] 12:07:00 12:07:00 _N [id number] Medica l 2022-01-30 2022-01-30 Outpatient LIZANDRO [facility] CHAYO [id number] Memoria 05:53:00 10:12:00 JAYE vazquez [facility] 2021-11-11 2021-11-12 Inpatient EM Linh Demarco [facility] MED [id number] [facility] 19:17:00 12:15:00 56 [facility] 2021-11-10 2021-11-10 Emergency BIANCA DOMÍNGUEZ MHNE 7511 MHNE 12:47:00 16:41:00 MANOHAR 2021-02-06 2021-02-06 Immunizati Covid [facility] [id number] [facility] 17:19:16 17:29:16 [facility] 2021-02-06 2021-02-06 Outpatient [facility] [id number] [facility] 00:00:00 00:00:00 2020-11-11 2020-11-11 Emergency BIANCA THAKUR [id number] MHNE 18:57:00 20:52:00 CIELO 2019-12-12 2019-12-12 Emergency E [facility]NE MHNE [id number] MHNE 14:05:00 14:05:00 2019-11-10 2019-11-10 Inpatient E [facility] [id number] Memoria 15:31:00 10:42:00 [facility] 2019-03-26 2019-03-26 Emergency E [facility] [id number] Memoria 14:39:00 14:39:00 [facility] 2019-01-10 2019-01-10 Appointmen RAJAUER, UTP UTP [id number] [place] 15:05:00 15:05:00 t; Stephanie CARDENAS Orthopedic P hysimacie RAMESH, Surgery - jean marie CARDENAS M.D. [place] 2018-12-27 2018-12-27 Appointmen DMITRI, UTP UTP [id number] [place] 14:10:00 14:10:00 t; Stephanie CARDENAS Orthopedic P hysimacie RAMESH, Surgery - jean marie CARDENAS M.D. [place] 2018-12-06 2018-12-06 Appointmen RAJAUER, UTP UTP [id number] [place] 09:45:00 09:45:00 t; Stephanie CARDENAS Orthopedic P hysimacie RAMESH, Surgery - jean marie CARDENAS M.D. [place] 2018-10-20 2018-10-20 Appointmen RAJAUER, UTP UTP [id number] [place] 10:10:00 10:10:00 t; Stephanie CARDENAS Phys jean marie Zimmerman M.D. 2018-09-27 2018-09-27 Appointmen RAJAUER, UTP UTP [id number] [place] 07:55:00 07:55:00 t; Stephanie CARDENAS Phys jean marie Zimmerman M.D. 2018-09-15 2018-09-15 Appointmen RAJAUER, UTP UTP [id number] [place] 10:10:00 10:10:00 t; Stephanie CARDENAS Phys jean marie Zimmerman M.D. 2018-08-25 2018-08-25 Appointmen DMITRI, UTP UTP [id number] [place] 10:10:00 10:10:00 t; Stephanie CARDENAS Phys jean marie Zimmerman M.D. 2018-07-28 [facility] UTP [id number] [place] 09:05:00 09:05:00 t; Stephanie CARDENAS Phys jean marie Zimmerman M.D. 2018-07-20 2018-07-20 Outpatient nullFlavo [facility] [id number] Memoria 12:44:08 16:20:00 r [facility] 2018-07-20 2018-07-20 Outpatient nullFlavo [facility] [id number] Memoria 12:44:08 16:20:00 r [facility] 2018-07-20 2018-07-20 Outpatient Korauer, [id number] 07:44:08 11:20:00 [facility] 2018-07-20 2018-07-20 [facility] [id number] Memoria 07:44:08 11:20:00 r [facility] 2018-07-20 2018-07-20 [facility] UTP [id number] [place] 07:00:00 07:00:00 t; Stephanie CARDENAS Phys jean marie Zimmerman M.D. 2018-06-17 2018-06-17 Appointmen DMITRI, [facility] UTP [id number] [place] 09:20:00 09:20:00 t; Stephanie CARDENAS Phys jean marie Zimmerman M.D. 2018-05-05 2018-05-05 Appointmen PALOMA, [facility] UTP [id number] [place] 10:45:00 10:45:00 t; LATASHA DOW Phy sici GEORGE, M.D. ans M.D. 2018-05-04 2018-05-04 Appointmen MAGUI, [facility] UTP [id number] [place] 09:15:00 09:15:00 t; NEO KILGORE Ph ysici MICHAEL, M.D. ans M.D. 2018-05-02 2018-05-02 Appointmen MARIUSZ, [facility] UTP [id number] [place] 09:30:00 09:30:00 t; Stephanie MAURER ans JOHN, M.D. 2018-03-23 2018-03-23 Appointmen MAGUI, [facility] [id number] [place] 09:00:00 09:00:00 tNEO GALLAGHER, Ph [facility] Manda LARSON. jean marie Brown 2014-03-28 2014-03-30 Inpatient [facility] [id number] Memoria 13:35:00 15:10:00 r [place] [address] [place] [address] 2014-03-28 2014-03-30 Inpatient [facility] [id number] Memoria 13:35:00 15:10:00 r [place] 01 [facility] 2014-03-28 2014-03-30 Outpatient Primomo, [id number] 08:35:00 10:10:00 [place] [id number] [place] [id number] Results Test Description Test Time Test Comments Results Result Comments Source Free T4 and TSH panel - Serum or Plasma 2022-07-23 00:00:00 Test Item Value Reference Range Interpretation Comme nts TSH (test code = TSH) 4.270 uIU/mL 0.178-4.530 free T4 (test code = free T4) 1.24 NG/dL 0.80-1.73 [facility] MedicalTriiodothyronine (T3) Free [Mass/volume] in Serum or Plasma 2022-07-23 00:00:00 Test Item Value Reference Range Interpretation Comments free T3 (test code = free T3) 3.4 pg/mL 2.0-4.7 [facility] Ttmhofp92-Xsaqksoimwqzup D3+25-Hydroxyvitamin D2 [Mass/volume] in Serum or [id number] 00:00:00 Test Item Value Reference Range Interpretation Comments vitamin D (test code = vitamin D) 65.2 NG/mL 32.0-100.0 [facility] MedicalLipid 1996 panel - Serum or [id number] 00:00:00 Test Item Value Reference Range Interpretation Comments cholesterol (test code = 186 mg/dL 0-200 cholesterol) triglycerides (test code = 80 mg/dL 10-150 triglycerides) HDL cholesterol (test code = HDL 71 mg/dL >50 cholesterol) HDL risk factor (test code = HDL 2.6 calc. risk factor) VLDL cholesterol (test code = VLDL 16 calc cholesterol) Cholesterol in LDL [Mass/volume] in 106 mg/dL <100 H Serum or Plasma (test code = 2089-1) [facility] [id number] 00:00:00 Test Item Value Reference Range Interpretation Comments HPV thinprep (test code = HPV negative negative thinprep) [facility] 2022-07-23 00:00:00 Test Item Value Reference Range Interpretation Comments bacterial vaginosis (test code = bv neg negative bacterial vaginosis) tristan species (test code = C. spp neg negative tristan species) tristan glabrata (test code = C. gla neg negative tristan glabrata) trichomonas vaginalis (CV/TV) trich neg negative (test code = trichomonas vaginalis (CV/TV)) [facility] [id number] 11:17:00 Test Item Value Reference Range Interpretation Comments PERIPHERAL BLOOD SMEAR (test code = PBS) RUN DATE: 11/12/21 [place] [facility] PAGE 1 RUN TIME: 1117 Specimen Inquiry RUN USER: INTERFACE PATIENT: CHIKIS CUMMINGS LOC: GUS U #: [id number] AGE/SX: 60/F ROOM: GUS RE11/11/[facility] DR: Linh Demarco MD : 64 BED: 4 DIS: STATUS: ADM IN TLOC: SPEC #: [id number] RECD: 11/12/21 STATUS: SHORTY RERukhsana #: [id number] CAYLA: 11/11/21 [facility] DR: Donny Velasquez DO R1 ENTERED: 11/12/21 SP TYPE: PBS OTHR DR: No Primary or Family Physician Self ReferredORDERED: # OF SLIDES, 28462, ANATOMIC SPEC TISSUES: A. PERIPHERAL BLOOD SMEAR FINAL DIAGNOSIS A. PERIPHERAL BLOOD SMEAR, MORPHOLOGIC EVALUATION: LEUKOPENIA, NO BLASTS SEEN THROMBOCYTOPENIA, NO PLATELET CLUMPS SEEN GROSS DESCRIPTION The specimen consists of a Yjnfxm-Rtzhij-ngltaxj peripheral blood smear labeledwith the patient's name and accession number. It is accompanied by a CBC reportas below. MICROSCOPIC DESCRIPTION REVIEWED CLINICAL INFORMATION THROMBOCYTOPENIA.------ Signed SIGNATURE ON FILE Kim Wilson MD 11/12/21 1117 END OF REPORT Coronavirus 2019 nCoV [id number] 03:54:00 Test Item Value Reference Range Interpretation Comments Coronavirus 2019 Positive NEGATIVE A This test has been nCoV Bedside (test authorize d by FDA under code = [id number]) an EUA for use byauthorized laboratories; T his test has been author ized only for the detecti on ofnucleic acid from SARS-CoV-2, not for any other viruses orpathogens; an d This test is only au thorized for the duratio n of thedeclaration that circumstances e xist justifying theauthorizatio n of emergency use o f in vitro diagnostic test sfor detection and/o r diagnosis of CO VID-19 under Utssrre96 4(b)(1) of the Act, 21 U.S .C. 360bbb-3(b)(1), unless theauthorizatio n is terminated or r evoked sooner. BASIC METABOLIC [id number] 03:45:00 Test Item Value Reference Range Interpretation Comments SODIUM (test code = 134 mmol/L 137-145 L NA) POTASSIUM (test code 3.4 mmol/L 3.4-5.0 N = K) CHLORIDE (test code = 101 mmol/L 98-107 N CL) CARBON DIOXIDE (test 28 mmol/L 22-30 N code = CO2) ANION GAP (test code 8 = GAP) GLUCOSE (test code = 108 mg/dL 74-106 H GLU) BLOOD UREA NITROGEN 10 mg/dL 7-17 N (test code = BUN) GLOMERULAR FILTRATION 111 >60 The es timated RATE (test code = glomerular filtration GFR) rate is compute d usingpatient ra ce, age (>18), sex, and serum creatinine. If anyof the needed data elements are mi ssing the Laboratory cannot compute an glenn mation of the glomerul ar filtration rate . CREATININE (test code 0.7 mg/dL 0.5-1.0 N = CREAT) CALCIUM (test code = 8.1 mg/dL 8.4-10.2 L CA) LIPID PROFILE (CORONARY RISK)2021-11-12 03:45:00 Test Item Value Reference Range Interpretation Comments TRIGLYCERIDES (test 178 mg/dL TRIGLYCE RIDES code = TRIG) REFERENCE RANGE:Normal: < 150 mg/dLBorderline High: 150-199 mg/dLHi gh: 200-499 mg/dLVe ry High: >=500 mg/ dL CHOLESTEROL (test 151 mg/dL CHOLESTERO L REFERENCE code = CHOL) RANGE:DESIRABLE : < 200 mg/dLBORDER LINE: 200-239 mg/dLHI GH: >=240 mg/dL HDL CHOLESTEROL (test 40 mg/dL 40-59 N code = HDL) LIPOPROTEIN LDL (test 67.29 mg/dL 32-99 N code = LDLC) CORONARY RISK FACTOR 3.78 CHOL/H DL RISK MALE: (test code = RISK) 1/2 AVG 3 .43 FEMALE: 1/2 AVG 3.27 AV G 4.97 AVG 4.44 2X AVG 9.55 2X AVG 7.05 3X AVG 23.39 3X AVG 11.04~~~~~~~~~~ ~~~~~~ ~~~~~~~~~~~~~~~ ~~~~~~ ~~~~~~~~~~~~~~~ ~~~~~~ ~~National Cholesterol Edu cation (NCEP) Guidelines:~~~~ ~~~~~~ ~~~~~~~~~~~~~~~ ~~~~~~ ~~~~~~~~~~~~~~~ ~~~~~~ ~~~~~~~~ HDL Cholesterol<4 0mg/dL : HDL Cholester ol (Major risk fac tor for CHD)>60mg/d L: HDL Cholesterol (Ne gative risk factor for CHD)40-59mg/dL: Borderline Risk LDL Cholesterol<1 00mg/d L: Desirable LD L-C clqkhefzkisgb21 0-159m g/dL: Borderlin e High Risk LDL-C pzicelahcjwbg20 0-189m g/dL: High risk LDL-C concentration H DL-LDL Cholesterol is affected by a n umber of factors such as smoking, age an d sex.~~~~~~~~~~~ ~~~~~~ ~~~~~~~~~~~~~~~ ~~~~~~ ~~~~~~~~~~~~~~~ ~~~~~~ ~ [id number] 03:45:00 Test Item Value Reference Range Interpretation Comments LIPASE (test code = LIP) 865 U/L 23-300 H [id number] 03:45:00 Test Item Value Reference Range Interpretation Comments MAGNESIUM (test code = MAG) 1.8 mg/dL 1.6-2.3 N C REACTIVE [id number] 03:45:00 Test Item Value Reference Range Interpretation Comments C REACTIVE PROTEIN (test code = 10.7 mg/L 0-9 H CRP) HGBA1C - GLYCOSYLATED [id number] 03:41:00 Test Item Value Reference Range Interpretation Comments GLYCOSYLATED 6.1 % 0-5.9 H Current guideli rahul recommend HEMOGLOBIN (HA1C) a treatmen t goal of <7% (test code = GLYHGB) fordiab etic patients. A1c may be overesti mated in diabeticpatient s exhibiting poor control an d who are alsoheterozygou s or homozygous for HgbS or HgbC. Totalglycohemog lobin is a better indicato r of diabetic control inpatie nts with these hemoglobi n variants. [id number] 03:39:00 Test Item Value Reference Range Interpretation Comments D-DIMER (test 854 ng/mLFEU 0-500 HH THE DDIMER MET HOD IS USED IN code = THE EXCLUSION O F DEEP DDIMER) VEINTHROMBOSIS AND/OR PULMONARY EMBOL ISM AND THE CLINICAL CUT-OF F VALUE FOR EXCLUSION (500 NG/ML FEU) OF THESE CONDITION SIS VALIDATED BY THE MANUFACT URER OF THE METHOD. A NEGAT AZAEL DDIMER RESULT WHEN COM BINED WITH A CLINICALASSESSM ENT OF LOW PRETEST PROBABI LITY HAS BEEN SHOWN TO HAVEA HIGH NEGATIVE PREDICTIVE VALU E OF DVT OR PE. D-DIMER TERESA UES >500 ng/mL ARE NOT D IAGNOSTIC FOR DVT,PEOR DIC WI THOUT OTHER CONFIRMATORY TE STS AND APPROPRIATECLIN ICAL EVALUATIONS. CBC W/AUTO [id number] 03:21:00 Test Item Value Reference Range Interpretation Comments WHITE BLOOD CELL (test code = 2.3 x10 3/uL 5.0-12.0 L WBC) RED BLOOD CELL (test code = 4.06 x10 6/uL 4.20-5.40 L RBC) HEMOGLOBIN (test code = HGB) 12.7 g/dL 12.0-16.0 N HEMATOCRIT (test code = HCT) 37.5 % 36.0-46.0 N MEAN CELL VOLUME (test code = 92 fL 81-99 N MCV) MEAN CELL HGB (test code = MCH) 31.3 pg 27-31 H MEAN CELL HGB CONCENTRATION 33.9 g/dL 33-37 N (test code = MCHC) RED CELL DISTRIBUTION WIDTH 13.5 % 11.5-15.5 N (test code = RDW) PLATELET COUNT (test code = 81 x10 3/uL 130-400 L PLT) MEAN PLATELET VOLUME (test code 10.4 fL 9.4-16.4 N = MPV) NEUTROPHIL % (test code = NT%) 52.6 % 43-65 N IMMATURE GRANULOCYTE % (test 0.4 % 0.0-2.0 N code = IG%) LYMPHOCYTE % (test code = LY%) 39.2 % 20.5-45.5 N MONOCYTE % (test code = MO%) 7.8 % 5.5-11.7 N EOSINOPHIL % (test code = EO%) 0.0 % 0.9-2.9 L BASOPHIL % (test code = BA%) 0.0 % 0.2-1.0 L NUCLEATED RBC % (test code = 0.0 % 0-1.0 N NRBC%) NEUTROPHIL # (test code = NT#) 1.22 x10 3/uL 2.2-4.8 L IMMATURE GRANULOCYTE # (test 0.01 x10 3/uL 0-0.03 N code = IG#) LYMPHOCYTE # (test code = LY#) 0.91 x10 3/uL 1.3-2.9 L MONOCYTE # (test code = MO#) 0.18 x10 3/uL 0.3-0.8 L EOSINOPHIL # (test code = EO#) 0.00 x10 3/uL 0.0-0.2 N BASOPHIL # (test code = BA#) 0.00 x10 3/uL 0.0-0.1 N - CT ANGIO [id number] 18:34:00 [facility] : 1960 Sex: F FAX: Hola Dent MD Ten [facility]: St: REG Name: CHIKIS CUMMINGS [facility] : 1960 Age/S: 60/F [address] Unit: [id number] Loc: [place] [address] Phys: Osmel Palomino MD Acct: [id number] Dis Date: Status: REG ER PHONE #: [phone] Exam Date: 11/11/2021 1815 FAX #: [phone] Reason: pe EXAMS: CPT CODE: [id number] CT ANGIO CHEST 50872 EXAM: - CT ANGIO CHEST INDICATION: pe . Shortness of breath. H62 TECHNIQUE: Volumetric CT acquisition of the chest with intravenous contrast. All CT scans areperformed using radiation dose reduction technique. Technical factors are evaluated and adjusted toinsure appropriate moderation of exposure. Automated dose management technology is applied to adjustthe radiation dose to minimize exposure while achieving a diagnostic quality image. Maximum intensity projection images were created from the data set. FINDINGS: Pulmonary arteries: No pulmonary artery embolus seen. Lungs and pleura: Multiple small bilateral patchy ground was opacities noted, likely r epresenting pneumonia. No pleural effusion or pneumothorax seen. Mediastinum: No cardiomegaly or pericardial effusion seen. Aorta does not appear aneurysmal. Lower Neck: Visualized thyroid appears unremarkable. Lymph Nodes: No enlarged lymph nodes seen. Upper abdomen: No significant abnormality seen Soft Tissues: No significant abnormality seen. Bones: No acute or destructive osseous process is seen. IMPRESSION: No pulmonary artery embolus seen. Bilateral opacities, likely representing pneumonia. Follow-up to resolution to exclude underlying neoplastic process. Please refer to the findings sectionfor additional details. PAGE 1 Signed Report (CONTINUED) FAX: Hola Dent MD [facility]: St: REG- Name: CHIKIS CMUMINGS [facility] : 1960 Age/S: 60/F [address] Unit: [id number] Loc: [place] [address] Phys: Osmel Palomino MD Acct: [id number] Dis Date: Status: REG ER PHONE #: [phone] ExamDate: 11/11/20211814 FAX #: [phone] Reason: pe EXAMS: CPT CODE: [id number] CT ANGIO CHEST 72137 (Continued) at 1834 Reported and signedby: Petros Adames MD CC: Hola Dent MD Technologist: MAIA MELLO, RT(R,CT); SHANA HOSKINS Trnscrd Dt/Tm: 11/11/2021 (183) t.[email or web address] Orig Print D/T: S: 11/11/2021 (1837 PAGE 2 Signed ReportCOMPREHENSIVE METABOLIC [id number] 17:12:00 Test Item Value Reference Range Interpretation Comments SODIUM (test code = 135 mmol/L 137-145 L NA) POTASSIUM (test code 3.2 mmol/L 3.4-5.0 L = K) CHLORIDE (test code 101 mmol/L 98-107 N = CL) CARBON DIOXIDE (test 32 mmol/L 22-30 H code = CO2) ANION GAP (test code 5 = GAP) GLUCOSE (test code = 111 mg/dL 74-106 H GLU) BLOOD UREA NITROGEN 11 mg/dL 7-17 N (test code = BUN) GLOMERULAR 95 >60 The estimated FILTRATION RATE glomerular f iltration (test code = GFR) rate is co mputed usingpatient ra ce, age (>18), sex, and serum creatinine. If anyof the needed data elements are mi ssing the Laboratory cannot compute an glenn mation of the glomerul ar filtration rate . CREATININE (test 0.8 mg/dL 0.5-1.0 N code = CREAT) TOTAL PROTEIN (test 6.3 g/dL 6.3-8.2 N code = PROT) " A positive bias m ay occur for patients ta rm Eltrombopag(a b one marrow stimulan t used to treat thrombocytopeni a andaplastic anemia)." ALBUMIN (test code = 3.1 g/dL 3.5-5.0 L ALB) CALCIUM (test code = 8.0 mg/dL 8.4-10.2 L CA) BILIRUBIN TOTAL 0.5 mg/dL 0.2-1.3 N "A positive bias may (test code = BILT) occur for patients taking Eltrombo pag(a bone marrow sti mulant used to treat thrombocytopeni a andaplastic ane frank)." BILIRUBIN CONJUGATED 0 mg/dL 0-0.3 N "A posi tive bias may (test code = BILCON) occur f or patients taking Eltrombo pag(a bone marrow sti mulant used to treat thrombocytopeni a andaplastic ane frank)." C ONJUGATE D BILIRUBIN IS THE REPLACEMENT ASS AY FOR DIRECTBILIRUBIN . BILIRUBIN 0.2 mg/dL 0-1.1 N UNCONJUGATED (test code = BILUNC) SGOT/AST (test code 47 U/L 15-46 H = AST) SGPT/ALT (test code 27 U/L 0-34 N = ALT) ALKALINE PHOSPHATASE 61 U/L 38-126 N (test code = ALKP) [id number] 17:12:00 Test Item Value Reference Range Interpretation Comments MAGNESIUM (test code = MAG) 1.7 mg/dL 1.6-2.3 N CBC W/AUTO [id number] 16:58:00 Test Item Value Reference Range Interpretation Comments WHITE BLOOD CELL (test code = 3.5 x10 3/uL 5.0-12.0 L WBC) RED BLOOD CELL (test code = 3.87 x10 6/uL 4.20-5.40 L RBC) HEMOGLOBIN (test code = HGB) 12.1 g/dL 12.0-16.0 N HEMATOCRIT (test code = HCT) 36.0 % 36.0-46.0 N MEAN CELL VOLUME (test code = 93 fL 81-99 N MCV) MEAN CELL HGB (test code = MCH) 31.3 pg 27-31 H MEAN CELL HGB CONCENTRATION 33.6 g/dL 33-37 N (test code = MCHC) RED CELL DISTRIBUTION WIDTH 13.8 % 11.5-15.5 N (test code = RDW) PLATELET COUNT (test code = 92 x10 3/uL 130-400 L PLT) MEAN PLATELET VOLUME (test code 10.9 fL 9.4-16.4 N = MPV) NEUTROPHIL % (test code = NT%) 59.8 % 43-65 N IMMATURE GRANULOCYTE % (test 0.3 % 0.0-2.0 N code = IG%) LYMPHOCYTE % (test code = LY%) 32.7 % 20.5-45.5 N MONOCYTE % (test code = MO%) 6.9 % 5.5-11.7 N EOSINOPHIL % (test code = EO%) 0.0 % 0.9-2.9 L BASOPHIL % (test code = BA%) 0.3 % 0.2-1.0 N NUCLEATED RBC % (test code = 0.0 % 0-1.0 N NRBC%) NEUTROPHIL # (test code = NT#) 2.09 x10 3/uL 2.2-4.8 L IMMATURE GRANULOCYTE # (test 0.01 x10 3/uL 0-0.03 N code = IG#) LYMPHOCYTE # (test code = LY#) 1.14 x10 3/uL 1.3-2.9 L MONOCYTE # (test code = MO#) 0.24 x10 3/uL 0.3-0.8 L EOSINOPHIL # (test code = EO#) 0.00 x10 3/uL 0.0-0.2 N BASOPHIL # (test code = BA#) 0.01 x10 3/uL 0.0-0.1 N TROPONIN I [id number] 16:47:00 Test Item Value Reference Range Interpretation Comments TROPONIN I RAPID 0.00 ng/mL 0.00-0.079 N ISTAT TROP ONIN I (test code = CRITERIA0.00-0. 08 ng/mL - TROPIRAP) Negative>0.08 n g/mL - Positive The us e of serial sampling and te sting protocol is are commended practice.An pierce vated troponin level alone is often not suffi cient fordiagnosis of myocardial infarction. Tro ponin results obtaine d by different assay s may vary.Evaluation of the extent of myoca rdial damage based on increase of troponin would be valid only if similar methodology is used. - XR CHEST 1 [id number] 16:30:00 [facility] CHIK[facility] : 1960 Sex: F [facility]: St: REG -- Name:CHIKIS CUMMINGS [facility] : 1960 Age/S: 60/F [address] Unit #: [id number] Loc: [place] [address] Phys: Osmel Palomino MD Acct: [id number] Dis Date: Status: REG ER PHONE #: [phone] Exam Date: 11/11/2021 5156 FAX #: [phone] Reason: covid EXAMS: CPT CODE: [id number] XR CHEST 1 V 80134 REASON FOR EXAM: Covid, shortness of breath. COMPARISON: None. Chest, single view, frontal projection. The lungs are well-inflated and clear. Heart size is normal. Some perihilarexaggeration could indicate adenopathy or viral changes. No effusion or pneumothorax can be seen. Osseous structures appear to be intact. IMPRESSION: No acute consolidation. Perihilar densities could indicate adenopathy or viral pneumonia/bronchitis changes beginning. Location: [facility] at 1630 Reported and signed by: Everton Hughes MD CC: Technologist: KIM SHAW Trnscrd Date/Time/By: 11/11/2021 (1630) : By: [email or web address] PAGE1 Signed Report [facility]: [facility]: REG Name: CHIKIS CUMMINGS [facility] [place] : 1960 Age/S: 60/F [address] Unit #:[id number] Loc: [place] [address] Phys: Osmel Palomino MD Acct: [id number] Dis Date: Status: REG ER PHONE #: [phone] Exam Date: 11/11/2021 1624 FAX #: [phone] Reason: covid EXAMS: CPT CODE: [id number] XR CHEST 1 V 79188 (Continued) Orig Print D/T: S: 11/11/2021 (1633) PAGE 2 Signed Report[[facility]] LIPID [id number] 10:01:00 Test Item Value Reference Range Interpretation Comments CHOLESTEROL, TOTAL; 174 mg/dl <200 N Normal (test code = 2093-3) HDL CHOLESTEROL; 57 mg/dl >50 N Normal (test code = 2085-9) TRIGLYCERIDES; 91 mg/dl <150 N Normal (test code = 2571-8) LDL-CHOLESTEROL; 98 {MG/DL MARGARETTE} N Reference range: Normal (test code = <100 Anatoliy irable range 44674-2) <100 mg/dL for primary prevent ion; <70 mg/dL for patients with C HD or diabetic patien ts with > or = 2 C HD risk factors. L DL-C is now calculat ed using the Jj calculation, wh ich is a validated novel method providin g better accuracy than the Friedewald equation in the estimation of L DL-C. Zurdo SS et al . MARY. 2013;310( 19): 9628-3241 (http://educati on.[employer] estDiagnAbimate.ee. com/f aq/KWI980) CHOL/HDLC RATIO 3.1 {CALC} <5.0 N (test code = CHOL/HDLC RATIO) NON HDL CHOLESTEROL 117 {MG/DL <130 N For berto ents with (test code = NON HDL MARGARETTE} diabete s plus 1 CHOLESTEROL) major ASCVD ris k factor, treatin g to a non-HDL-C goa l of <100 mg/dL (LDL -C of <70 mg/dL) is considered a therapeutic opt ion. [facility]] IRON, [id number] 10:01:00 Test Item Value Reference Range Interpretation Comments IRON, TOTAL (test code = IRON, 117 {mcg/dl} 45-160 N TOTAL) [facility]] [id number] 10:01:00 Test Item Value Reference Range Interpretation Comments MAGNESIUM (test code = MAGNESIUM) 1.9 mg/dl 1.5-2.5 N [facility]] CMP [id number] 10:01:00 Test Item Value Reference Range Interpretation Comments GLUCOSE; Above 104 mg/dl 65-99 Fasting refer ence High Threshold interval For someone (test code = without known 1547-9) diabetes, a glu cose valuebetween 10 0 and 125 mg/dL is consistent withprediabetes and should be confi rmed with afollow-up test. UREA NITROGEN 12 mg/dl 7-25 N (BUN) (test code = UREA NITROGEN (BUN)) CREATININE (test 0.80 mg/dl 0.50-1.05 N For patient s >49 years code = of age, the ref erence CREATININE) limitfor Creati nine is approximately 1 3% higher for peopleidentifie d as -Marycarmen n. eGFR NON- 82 {ML/MIN/1.7} > OR = 60 N GHANAIAN (test code = eGFR NON-) eGFR 96 {ML/MIN/1.7} > OR = 60 N GHANAIAN (test code = eGFR ) BUN/CREATININE NOT APPLICABLE 04-29 RATIO (test code = BUN/CREATININE RATIO) SODIUM (test code 141 mmol/L 135-146 N = SODIUM) POTASSIUM (test 4.3 mmol/L 3.5-5.3 N code = POTASSIUM) CHLORIDE (test 108 mmol/L 98-110 N code = CHLORIDE) CARBON DIOXIDE 28 mmol/L 20-32 N (test code = CARBON DIOXIDE) CALCIUM (test 8.6 mg/dl 8.6-10.4 N code = CALCIUM) PROTEIN, TOTAL 6.1 g/dl 6.1-8.1 N (test code = PROTEIN, TOTAL) ALBUMIN (test 3.6 g/dl 3.6-5.1 N code = ALBUMIN) GLOBULIN (test 2.5 {G/DL CALC} 1.9-3.7 N code = GLOBULIN) ALBUMIN/GLOBULIN 1.4 {CALC} 1.0-2.5 N RATIO (test code = ALBUMIN/GLOBULIN RATIO) BILIRUBIN, TOTAL; 0.7 mg/dl 0.2-1.2 N Normal (test code = 20606-3) ALKALINE 78 u/l 33-130 N PHSPHATASE (test code = ALKALINE PHSPHATASE) AST; Normal (test 18 u/l 10-35 N code = 1916-6) ALT; Normal (test 11 u/l 6-29 N code = 1742-6) [facility]] CBC (INCLUDES DIFF/PLT)2019-03-29 10:01:00 Test Item Value Reference Range Interpretation Comments WHITE BLOOD CELL COUNT 3.4 {Thousand/u} 3.8-10.8 (test code = WHITE BLOOD CELL COUNT) RED BLOOD CELL COUNT (test 3.80 {Million/uL} 3.80-5.10 N code = RED BLOOD CELL COUNT) HEMAGLOBIN; Normal (test 11.8 g/dl 11.7-15.5 N code = 17731-2) HEMATOCRIT; Normal (test 36.3 % 35.0-45.0 N code = 4544-3) MCV; Normal (test code = 95.5 fL 80.0-100.0 N 787-2) MCHC; Normal (test code = 32.5 g/dl 32.0-36.0 N 98890-3) RDW; Normal (test code = 13.0 % 11.0-15.0 N 788-0) PLATELET COUNT; Below Low 116 {Thousand/u} 140-400 Threshold (test code = 777-3) MPV; Normal (test code = 10.5 fL 7.5-12.5 N 05085-1) ABSOLUTE NEUTROPHILS (test 1642 {cells/uL} 4221-7998 N code = ABSOLUTE NEUTROPHILS) ABSOLUTE LYMPHOCYTES (test 1493 {cells/uL} 850-3900 N code = ABSOLUTE LYMPHOCYTES) ABSOLUTE MONOCYTES (test 214 {cells/uL} 200-950 N code = ABSOLUTE MONOCYTES) ABSOLUTE EOSINOPHILS (test 41 {cells/uL} 15-500 N code = ABSOLUTE EOSINOPHILS) ABSOLUTE BASOPHILS (test 10 {cells/uL} 0-200 N code = ABSOLUTE BASOPHILS) NEUTROPHILS (test code = 48.3 % N NEUTROPHILS) LYMPHOCYTES (test code = 43.9 % N LYMPHOCYTES) MONOCYTES; Normal (test 6.3 % N code = 19698-4) EOSINOPHILS; Normal (test 1.2 % N code = 88058-6) BASOPHILS; Normal (test 0.3 % N code = 49631-4) [facility]] [id number] 10:01:00 Test Item Value Reference Range Interpretation Comments PREALBUMIN (test code = PREALBUMIN) 16 mg/dl 17-34 [facility]] PTH, INTACT (WITHOUT CALCIUM)2019-03-29 10:01:00 Test Item Value Reference Range Interpretation Comments PARATHYROID 82 pg/ml 14-64 Interpretive Gu osmel Intact HORMONE, INTACT PTH Calcium- (test code = ---- ---Normal PARATHYROID Parathyroid Nor mal HORMONE, INTACT) NormalHypop arathyroidism Low or Low Normal LowHyperparathy roidism Primary Normal or High High Secondary High Normal or Low Tertiary High HighNon-Parathy roid Hypercalcemia L ow or Low Normal High [facility]] [id number] 10:01:00 Test Item Value Reference Range Interpretation Comments FERRITIN (test code = FERRITIN) 49 ng/ml 10-232 N [facility]] FOLATE, [id number] 10:01:00 Test Item Value Reference Range Interpretation Comments FOLATE, SERUM (test 20.8 ng/ml N Referenc e Range Low: code = FOLATE, <3.4 Borderli ne: SERUM) 3.4-5.4 Normal: >5.4 [facility]] TSH, 3RD [id number] 10:01:00 Test Item Value Reference Range Interpretation Comments TSH; Normal (test code = 2.63 {MIU/L} 0.40-4.50 N 79091-2) [facility]] VITAMIN [id number] 10:01:00 Test Item Value Reference Range Interpretation Comments VITAMIN B12 (test code = VITAMIN 616 pg/ml 200-1100 N B12) [facility]] VITAMIN D, 25-HYDROXY, LC/MS/[id number] 10:01:00 Test Item Value Reference Range Interpretation Comments VITAMIN 25 ng/ml 30-100 Vitamin D Statu s 25-OH D,25-OH,TOTAL,IA Vitamin D: Deficiency: (test code = VITAMIN <20 ng/ mLInsufficiency: D,25-OH,TOTAL,IA) 20 - 29 ng /mLOptimal: > or = 30 ng/mL F or 25-OH Vitamin D testi ng on patients on D2-supplementat ion and patients for wh om quantitation of D2 and D3 fractions is required, the QuestAssureD(TM )25-OH VIT D, (D2,D3), LC/MS/MS is recommended: order code 02551 (pat ients >2yrs). For mor e information on this test, go to:[email or web address] [email or web address] m/faq/FAQ [email or web address](This link i s being provided for informational/e ducationa l purposes only .) [facility]] HEMOGLOBIN [id number] 10:01:00 Test Item Value Reference Range Interpretation Comments HEMOGLOBIN A1c; 5.5 {% of <5.7 N For the purp ose of Normal (test code total} screening for the = 4548-4) presence ofdiab etes: <5.7% Consisten t with the absence of diabetes5.7-6.4 % Consistent with increased risk for diabetes (predi abetes)> or =6.5% Consis tent with diabetes T his assay result is consistent with a decreased risko f diabetes. Curre ntly, no consensus exist s regarding use ofhemoglobin A1 c for diagnosis of di abetes in children. Ac cording to [place] [employer] (ADA)guidelines , hemoglobin A1c <7.0% represents optimalcontrol in non- di abetic patients. Differentmetric s may apply to specif ic patient populat ions. Standards of [place] Care in [place]abete [place](ADA). [place] Physicians[[facility]] VITAMIN A (RETINOL)2019-03-29 10:01:00 Test Item Value Reference Range Interpretation Comments VITAMIN A (test 29 {mcg/dl} 38-98 Clin Chem Vol. 34.No.8. code = VITAMIN A) [id number] Vitamin supplementation within 24 hours prior to blood draw may affect the accuracy of results. Thi s test was developed and i ts analytical perf ormance characteristics have been determined by [employer] Mathew Carcamo. It call s not been cleared or appr orquidea by the USFood and Drug Administration. This assay has been validated pursuant to the CLIA regulations and is used for clinical pu rposes. [place] [facility]] VITAMIN E (TOCOPHEROL)2019-03-29 10:01:00 Test Item Value Reference Range Interpretation Comments ALPHA-TOCOPHEROL 13.7 mg/L 5.7-19.9 Pediatric T erm Infants (Cord (test code = Blood) 1.8 - 5. 8 mg/L Levels ALPHA-TOCOPHEROL of alpha-to copherol < 5 mg/L ) are consistent with VitaminE deficiency in a dults [id number] 1.1 mg/L < 4.4 Vitamin sup plementation HEROL (test code within 24 h ours prior to = blood draw may affect the [id number] accuracy of results. This HEROL) test was develo ped and its analytical perf ormance characteristics have been determined by [employer] Maverick Carcamo. It call s not been cleared or appr orquidea by the USFood and Drug Administration. This assay has been valida keith persuant to the CLIA reg ulations and is used for cli nical purposes. [place] [facility]] Zinc [id number] 10:01:00 Test Item Value Reference Range Interpretation Comments ZINC (test code 86 {mcg/dl} 60-130 This test wa s developed and = ZINC) its analytical performance characteristics have been determined by [employer] Mathew Carcamo. It has not been cleared or approved by the USFood and Drug Administra tion. This assay has been validated pursuant to the CLIA regulations and is used for clinical purpos es. [place] [facility]] VITAMIN B1, WHOLE [id number] 10:01:00 Test Item Value Reference Range Interpretation Comments VITAMIN B1, WHOLE 88 nmol/L 78-185 Vitamin camara pplementation BLOOD (test code = within 24 hours prior to VITAMIN B1, WHOLE blood draw may affect the BLOOD) accuracy of res ults. This test was develo ped and its analytical perf ormance characteristics have been determined by [employer] Mathew Carcamo. It has not been cleared or approved by FDA . This assay has been validated pursuant to the CLIA regulations and is used for clinical pu rposes. [place] [facility][Q] VITAMIN [id number] 10:01:00 Test Item Value Reference Range Interpretation Comments VITAMIN K (test 369 pg/ml 80-1160 This test wa s developed code = VITAMIN K) and its an alytical performance characteristics have been determined by [employer] Zep[employer]. It has not been cleared or approved by the USFood and Drug Administra tion. This assay has been validated pursuant to the CLIA regulations and is used for clinical pu rposes. [place] [id number] 15:20:00 Test Item Value Reference Range Interpretation Comments FIO2 (test code = FIO2) 98 [id number] 15:20:00 Test Item Value Reference Range Interpretation Comments FIO2 (test code = FIO2) 98 [facility]wo[id number] 20:11:00 Test Item Value Reference Range Interpretation Comments eGFR (test code = eGFR) 78 [facility] KingwoodLdukekbAUTRIMXGXE9951-86-67 20:11:00 Test Item Value Reference Range Interpretation Comments Carbon Dioxide Level (test code = 30 24-32 Carbon Dioxide Level) [facility]woodYbwdshlDVWTUSEREJ8751-79-39 20:11:00 Test Item Value Reference Range Interpretation Comments AGAP (test code = AGAP) 10.1 10.0-20.0 [facility]wo[id number] 20:11:00 Test Item Value Reference Range Interpretation Comments Glucose Lvl (test code = Glucose Lvl) 95 70-99 [facility]woodSdzvquhBDWSSUEUBX0666-49-72 20:11:00 Test Item Value Reference Range Interpretation Comments BUN (test code = BUN) 16 7-22 [facility]woodEvqfnoiBIMWEAQZFK7478-42-28 20:11:00 Test Item Value Reference Range Interpretation Comments Creatinine (test code = Creatinine) 0.95 0.50-1.40 [facility] K[id number] 20:11:00 Test Item Value Reference Range Interpretation Comments Calcium Level (test code = Calcium 8.3 8.5-10.5 Level) [facility] KingwoodYfgomlaRXLNXFXQFN3267-01-82 20:11:00 Test Item Value Reference Range Interpretation Comments Sodium Level (test code = Sodium Level) 143 135-145 [facility] KingwoodLfouznaFQHNCPMRUT0577-01-80 20:11:00 Test Item Value Reference Range Interpretation Comments Potassium Level (test code = Potassium 4.1 3.5-5.1 Level) [facility] KingwoodEsbiefhNYHZGUXVWF8522-29-10 20:11:00 Test Item Value Reference Range Interpretation Comments Chloride Level (test code = Chloride 107 95-109 Level) [facility]woodE[id number] 20:11:00 Test Item Value Reference Range Interpretation Comments Results (test code = Scanned (07/19/18 3:11 Results) PM) [facility] Kingwo[id number] 20:11:00 Test Item Value Reference Range Interpretation Comments Hematocrit (test code = Hematocrit) 37.6 36.0-48.0 [facility]woodBufgfjeAVLKEBJPVB0334-33-92 20:11:00 Test Item Value Reference Range Interpretation Comments Hemoglobin (test code = Hemoglobin) 12.6 12.0-16.0 [facility] KingwoodIpnxhphKPAGKTDBOE7458-47-31 20:11:00 Test Item Value Reference Range Interpretation Comments Results (test code = Scanned (07/19/18 3:11 Results) PM) [facility] KingwoodJzypubaUKDDWBPBXZ2426-46-78 20:11:00 Test Item Value Reference Range Interpretation Comments PTT (test code = PTT) 31.3 s 22.9-35.8 [facility] KingwoodJersbunZJQOWBCUYT4404-52-72 20:11:00 Test Item Value Reference Range Interpretation Comments Results (test code = Scanned (07/19/18 3:11 Results) PM) [facility] Kingwo[id number] 20:11:00 Test Item Value Reference Range Interpretation Comments Results (test code = Scanned (07/19/18 3:11 Results) PM) [facility] KingwoodPzkwirvMJUPTSQQSG8775-28-27 20:11:00 Test Item Value Reference Range Interpretation Comments INR (test code = INR) 0.93 0.85-1.17 [facility] KingwoodZfupgxdKFTBQGPXVG2753-78-77 20:11:00 Test Item Value Reference Range Interpretation Comments PT (test code = PT) 12.5 s 12.0-14.7 [facility] KingwoodVczmrvtKJFIKJVVLP1592-37-65 20:11:00 Test Item Value Reference Range Interpretation Comments eGFR (test code = eGFR) 78 [facility] KingwoodTllugxpBHMATKBZSV8147-54-52 20:11:00 Test Item Value Reference Range Interpretation Comments Carbon Dioxide Level (test code = 30 24-32 Carbon Dioxide Level) [facility] KingwoodDvmxinkWXNADTPRER7815-41-55 20:11:00 Test Item Value Reference Range Interpretation Comments AGAP (test code = AGAP) 10.1 10.0-20.0 [facility]woodArvwohcOBPGQNJVVK2434-10-19 20:11:00 Test Item Value Reference Range Interpretation Comments Glucose Lvl (test code = Glucose Lvl) 95 70-99 [facility] KingwoodOdfdfnfHGTSVWSINR7780-84-04 20:11:00 Test Item Value Reference Range Interpretation Comments BUN (test code = BUN) 16 7-22 [facility] KingwoodBwpxkrdLNKONODILB2407-25-73 20:11:00 Test Item Value Reference Range Interpretation Comments Creatinine (test code = Creatinine) 0.95 0.50-1.40 [facility] KingwoodOctgsngOVEQMDLIIC2585-65-56 20:11:00 Test Item Value Reference Range Interpretation Comments Calcium Level (test code = Calcium 8.3 8.5-10.5 Level) [facility] KingwoodHkxurfyHDMITWKWEX3376-46-30 20:11:00 Test Item Value Reference Range Interpretation Comments Sodium Level (test code = Sodium Level) 143 135-145 [facility] KingwoodOshdwdkWLWPLGJOLC2023-29-79 20:11:00 Test Item Value Reference Range Interpretation Comments Potassium Level (test code = Potassium 4.1 3.5-5.1 Level) [facility] KingwoodDmakssaZWJOEYGMRR1851-84-96 20:11:00 Test Item Value Reference Range Interpretation Comments Chloride Level (test code = Chloride 107 95-109 Level) [facility] KingwoodZgfgxkxJQAKBHZWFF1618-01-61 20:11:00 Test Item Value Reference Range Interpretation Comments Results (test code = Scanned (07/19/18 3:11 Results) PM) [facility]woodDmmlfbiUEXGSYIBQP2605-67-98 20:11:00 Test Item Value Reference Range Interpretation Comments Hematocrit (test code = Hematocrit) 37.6 36.0-48.0 [facility] KingwoodKwyjoyjSFIRAINYIR3078-05-93 20:11:00 Test Item Value Reference Range Interpretation Comments Hemoglobin (test code = Hemoglobin) 12.6 12.0-16.0 [facility] KingwoodEupvzigERSQYUVNEP0833-02-58 20:11:00 Test Item Value Reference Range Interpretation Comments Results (test code = Scanned (07/19/18 3:11 Results) PM) [facility]XdaraetNCVGTRLVAZ8372-00-05 20:11:00 Test Item Value Reference Range Interpretation Comments PTT (test code = PTT) 31.3 s 22.9-35.8 [facility]DxsdvbcNRYLFLINPE0269-45-54 20:11:00 Test Item Value Reference Range Interpretation Comments Results (test code = Scanned (07/19/18 3:11 Results) PM) [facility] HospitalJtbbdtgIRQYIUUGSV7911-09-71 20:11:00 Test Item Value Reference Range Interpretation Comments Results (test code = Scanned (07/19/18 3:11 Results) PM) [facility]GzyuovzJNEUESGWBV4635-00-89 20:11:00 Test Item Value Reference Range Interpretation Comments INR (test code = INR) 0.93 0.85-1.17 [facility] HospitalPmoejdaQEPZUSPRVQ0935-95-07 20:11:00 Test Item Value Reference Range Interpretation Comments PT (test code = PT) 12.5 s 12.0-14.7 [facility], CHEST, 1 VIEW, NON [id number] 13:40:00Reason for exam:- >chest painIs the patient ?->NoFINAL REPORT Chest, AP view. History: Chest pain. Comparison: None available. Discussion: The cardiomediastinal silhouette and pulmonary vasculature are within normal limits. The lungs are clear without evidence of consolidation or effusion. There are no acute osseous abnormalities. The soft tissues are unremarkable. IMPRESSION: No acute cardiopulmonary abnormality. Signed: Sergio Motley MDReport Verified Date/Time: 04/28/2018 13:40:50 [facility] [id number] 06:34:00 Test Item Value Reference Range Interpretation Comments MAGNESIUM (BEAKER) (test code = 1.9 mg/dL 1.6-2.6 627) [id number] 06:34:00 Test Item Value Reference Range Interpretation Comments PHOSPHORUS (BEAKER) (test code = 3.6 mg/dL 2.3-4.7 604) BASIC METABOLIC [id number] 06:34:00 Test Item Value Reference Range Interpretation Comments SODIUM (BEAKER) 140 meq/L 136-145 (test code = 381) POTASSIUM (BEAKER) 3.9 meq/L 3.5-5.1 (test code = 379) CHLORIDE (BEAKER) 105 meq/L 98-107 (test code = 382) CO2 (BEAKER) (test 29 meq/L 22-29 code = 355) BLOOD UREA NITROGEN 11 mg/dL 7-21 (BEAKER) (test code = 354) CREATININE (BEAKER) 0.78 mg/dL 0.57-1.25 (test code = 358) GLUCOSE RANDOM 104 mg/dL 70-105 (BEAKER) (test code = 652) CALCIUM (BEAKER) 8.8 mg/dL 8.4-10.2 (test code = 697) EGFR (BEAKER) (test 93 mL/min/1.73 ESTIMA KEITH GFR IS code = 1092) sq m NOT ACCURATE CREATININE CLEARANCE IN PREDICTING GLOMERULAR FILTRATION RATE . ESTIMATED GFR I S NOT APPLICABLE FOR DIALYSIS PATIEN TS. HEPATIC FUNCTION [id number] 06:34:00 Test Item Value Reference Range Interpretation Comments TOTAL PROTEIN (BEAKER) (test code = 6.1 gm/dL 6.0-8.3 770) ALBUMIN (BEAKER) (test code = 1145) 3.3 g/dL 3.5-5.0 L BILIRUBIN TOTAL (BEAKER) (test code 0.7 mg/dL 0.2-1.2 = 377) BILIRUBIN DIRECT (BEAKER) (test 0.3 mg/dL 0.1-0.5 code = 706) ALKALINE PHOSPHATASE (BEAKER) (test 77 U/L 40-150 code = 346) AST (SGOT) (BEAKER) (test code = 22 U/L 5-34 353) ALT (SGPT) (BEAKER) (test code = 14 U/L 6-55 347) CBC W/PLT COUNT & AUTO [id number] 06:11:00 Test Item Value Reference Range Interpretation Comments WHITE BLOOD CELL COUNT (BEAKER) 3.7 K/ L 3.5-10.5 (test code = 775) RED BLOOD CELL COUNT (BEAKER) 3.93 M/ L 3.93-5.22 (test code = 761) HEMOGLOBIN (BEAKER) (test code = 11.9 GM/DL 11.2-15.7 410) HEMATOCRIT (BEAKER) (test code = 37.0 % 34.1-44.9 411) MEAN CORPUSCULAR VOLUME (BEAKER) 94.1 fL 79.4-94.8 (test code = 753) MEAN CORPUSCULAR HEMOGLOBIN 30.3 pg 25.6-32.2 (BEAKER) (test code = 751) MEAN CORPUSCULAR HEMOGLOBIN CONC 32.2 GM/DL 32.2-35.5 (BEAKER) (test code = 752) RED CELL DISTRIBUTION WIDTH 14.2 % 11.7-14.4 (BEAKER) (test code = 412) PLATELET COUNT (BEAKER) (test 114 K/CU MM 150-450 L code = 756) MEAN PLATELET VOLUME (BEAKER) 10.1 fL 9.4-12.3 (test code = 754) NUCLEATED RED BLOOD CELLS 0 /100 WBC 0-0 (BEAKER) (test code = 413) NEUTROPHILS RELATIVE PERCENT 48 % (BEAKER) (test code = 429) LYMPHOCYTES RELATIVE PERCENT 42 % (BEAKER) (test code = 430) MONOCYTES RELATIVE PERCENT 8 % (BEAKER) (test code = 431) EOSINOPHILS RELATIVE PERCENT 1 % (BEAKER) (test code = 432) BASOPHILS RELATIVE PERCENT 1 % (BEAKER) (test code = 437) NEUTROPHILS ABSOLUTE COUNT 1.77 K/ L 1.56-6.13 (BEAKER) (test code = 670) LYMPHOCYTES ABSOLUTE COUNT 1.56 K/ L 1.18-3.74 (BEAKER) (test code = 414) MONOCYTES ABSOLUTE COUNT (BEAKER) 0.29 K/ L 0.24-0.36 (test code = 415) EOSINOPHILS ABSOLUTE COUNT 0.05 K/ L 0.04-0.36 (BEAKER) (test code = 416) BASOPHILS ABSOLUTE COUNT (BEAKER) 0.02 K/ L 0.01-0.08 (test code = 417) IMMATURE GRANULOCYTES-RELATIVE 0 % 0-1 PERCENT (BEAKER) (test code = 2801) PUL PERF IMAGING, PARTIC, [id number] 17:09:00FINAL REPORT PROCEDURE: V/Q LUNG SCAN CPT CODE: 12214 INDICATION: Acute chest pain PROTOCOL: 10.7 mCi of Xe-133 gas was administered by inhalation. Single breath and rebreathing/washout images were obtained in the anterior and the posterior projections. 4.3 mCi of Tc-99m MAA was then injected intravenously, and static perfusion images were obtained in multiple projections. FINDINGS: Ventilation: Initial tracer distribution is physiological. Washout proceeds normally. Perfusion: Tracer distribution is physiological. IMPRESSION: Normal ventilation/perfusion lung scan. Signed: Michael Quintero MDReport Verified Date/Time: 04/19/2018 17:09:57 Reading Location: [address] Reading Room HEMOGLOBIN [id number] 10:25:00 Test Item Value Reference Range Interpretation Comments HEMOGLOBIN A1C (BEAKER) (test code = 5.2 % 4.3-6.1 368) CREATINE KINASE (CK), TOTAL AND [id number] 04:48:00 Test Item Value Reference Range Interpretation Comments CREATINE KINASE TOTAL (BEAKER) 109 U/L 29-200 (test code = 380) CREATINE KINASE-MB (BEAKER) (test 0.8 ng/mL 0.0-6.6 code = 750) CREATINE KINASE-MB INDEX (BEAKER) 0.7 % (test code = 395) CK-MB Reference Range:<6.7 Normal6.7-10.0 Borderline>10.0 AbnormalD-DIMER 2018-04-19 04:47:00 Test Item Value Reference Range Interpretation Comments D-DIMER QUANTITATIVE (BEAKER) 0.69 MG/L FEU <0.50 H (test code = 671) Intended Use: The D-Dimer Assay can be used to aid in the diagnosis of Deep Vein Thrombosis (DVT) and Pulmonary Embolism Disease (PED).In patients with low pre- test probability, various studies concerning STA Liatest D-dimer test have reported that with a cutoff value of 0.50 MG/L FEU, the Negative Predictive Value (NPV) regarding the exclusion of thrombosis is within 95-100% range. TROPONIN [id number] 04:46:00 Test Item Value Reference Range Interpretation Comments TROPONIN I (BEAKER) (test code = 397) < ng/mL 0.00-0.03 Troponin I (TnI) levels must be interpreted in the context of the presenting symptoms and the clinical findings. Elevated TnI levels indicate myocardial damage, but are not specific for ischemic heart disease. Elevated TnI levels are seen in patients with other cardiac conditions (including myocarditis and congestive heart failure), and slight TnI elevations occur in patients with other conditions, including sepsis, renal failure, acidosis, acute neurological disease, and persistent tachyarrhythmia.TSH/FREE T4 IF [id number] 01:45:00 Test Item Value Reference Range Interpretation Comments THYROID STIMULATING HORMONE 4.62 uIU/mL 0.35-4.94 (BEAKER) (test code = 772) CREATINE KINASE (CK), TOTAL AND [id number] 01:16:00 Test Item Value Reference Range Interpretation Comments CREATINE KINASE TOTAL (BEAKER) 117 U/L 29-200 (test code = 380) CREATINE KINASE-MB (BEAKER) (test 0.9 ng/mL 0.0-6.6 code = 750) CREATINE KINASE-MB INDEX (BEAKER) 0.8 % (test code = 395) CK-MB Reference Range:<6.7 Normal6.7-10.0 Borderline>10.0 AbnormalTROPONIN [id number] 01:16:00 Test Item Value Reference Range Interpretation Comments TROPONIN I (BEAKER) (test code = 397) < ng/mL 0.00-0.03 Troponin I (TnI) levels must be interpreted in the context of the presenting symptoms and the clinical findings. Elevated TnI levels indicate myocardial damage, but are not specific for ischemic heart disease. Elevated TnI levels are seen in patients with other cardiac conditions (including myocarditis and congestive heart failure), and slight TnI elevations occur in patients with other conditions, including sepsis, renal failure, acidosis, acute neurological disease, and persistent tachyarrhythmia.[id number] 01:11:00 Test Item Value Reference Range Interpretation Comments PHOSPHORUS (BEAKER) (test code = 3.2 mg/dL 2.3-4.7 604) [id number] 01:11:00 Test Item Value Reference Range Interpretation Comments MAGNESIUM (BEAKER) (test code = 2.0 mg/dL 1.6-2.6 627) BASIC METABOLIC [id number] 01:11:00 Test Item Value Reference Range Interpretation Comments SODIUM (BEAKER) 140 meq/L 136-145 (test code = 381) POTASSIUM (BEAKER) 4.2 meq/L 3.5-5.1 (test code = 379) CHLORIDE (BEAKER) 106 meq/L 98-107 (test code = 382) CO2 (BEAKER) (test 26 meq/L 22-29 code = 355) BLOOD UREA NITROGEN 11 mg/dL 7-21 (BEAKER) (test code = 354) CREATININE (BEAKER) 0.75 mg/dL 0.57-1.25 (test code = 358) GLUCOSE RANDOM 106 mg/dL 70-105 H (BEAKER) (test code = 652) CALCIUM (BEAKER) 9.4 mg/dL 8.4-10.2 (test code = 697) EGFR (BEAKER) (test 97 mL/min/1.73 ESTIMA KEITH GFR IS code = 1092) sq m NOT ACCURATE CREATININE CLEARANCE IN PREDICTING GLOMERULAR FILTRATION RATE . ESTIMATED GFR I S NOT APPLICABLE FOR DIALYSIS PATIEN TS. LIPID [id number] 01:11:00 Test Item Value Reference Range Interpretation Comments TRIGLYCERIDES (BEAKER) (test code = 79 mg/dL 540) CHOLESTEROL (BEAKER) (test code = 177 mg/dL 631) HDL CHOLESTEROL (BEAKER) (test code 60 mg/dL = 976) LDL CHOLESTEROL CALCULATED (BEAKER) 101 mg/dL (test code = 633) Triglyceride Reference Range: Low Risk <150 Borderline 150-199 High Risk 200- 499 Very High Risk >=500Cholesterol Reference Range: Low Risk <200 Borderline 200-239 High Risk >240HDL Cholesterol Reference Range: Low Risk >=60 High Risk <40LDL Cholesterol Reference Range: Optimal <100 Near Optimal 100-129 Borderline 130-159 High 160-189 Very High >=190HEPATIC FUNCTION [id number] 01:11:00 Test Item Value Reference Range Interpretation Comments TOTAL PROTEIN (BEAKER) (test code = 6.8 gm/dL 6.0-8.3 770) ALBUMIN (BEAKER) (test code = 1145) 3.6 g/dL 3.5-5.0 BILIRUBIN TOTAL (BEAKER) (test code 0.6 mg/dL 0.2-1.2 = 377) BILIRUBIN DIRECT (BEAKER) (test 0.2 mg/dL 0.1-0.5 code = 706) ALKALINE PHOSPHATASE (BEAKER) (test 84 U/L 40-150 code = 346) AST (SGOT) (BEAKER) (test code = 23 U/L 5-34 353) ALT (SGPT) (BEAKER) (test code = 14 U/L 6-55 347) C-REACTIVE [id number] 01:11:00 Test Item Value Reference Range Interpretation Comments C-REACTIVE PROTEIN (BEAKER) (test 0.07 mg/dL 0.00-0.50 code = 676) CBC W/PLT COUNT & AUTO [id number] 00:58:00 Test Item Value Reference Range Interpretation Comments WHITE BLOOD CELL COUNT (BEAKER) 3.9 K/ L 3.5-10.5 (test code = 775) RED BLOOD CELL COUNT (BEAKER) 4.04 M/ L 3.93-5.22 (test code = 761) HEMOGLOBIN (BEAKER) (test code = 12.4 GM/DL 11.2-15.7 410) HEMATOCRIT (BEAKER) (test code = 37.3 % 34.1-44.9 411) MEAN CORPUSCULAR VOLUME (BEAKER) 92.3 fL 79.4-94.8 (test code = 753) MEAN CORPUSCULAR HEMOGLOBIN 30.7 pg 25.6-32.2 (BEAKER) (test code = 751) MEAN CORPUSCULAR HEMOGLOBIN CONC 33.2 GM/DL 32.2-35.5 (BEAKER) (test code = 752) RED CELL DISTRIBUTION WIDTH 14.1 % 11.7-14.4 (BEAKER) (test code = 412) PLATELET COUNT (BEAKER) (test 127 K/CU MM 150-450 L code = 756) MEAN PLATELET VOLUME (BEAKER) 10.6 fL 9.4-12.3 (test code = 754) NUCLEATED RED BLOOD CELLS 0 /100 WBC 0-0 (BEAKER) (test code = 413) NEUTROPHILS RELATIVE PERCENT 42 % (BEAKER) (test code = 429) LYMPHOCYTES RELATIVE PERCENT 48 % (BEAKER) (test code = 430) MONOCYTES RELATIVE PERCENT 8 % (BEAKER) (test code = 431) EOSINOPHILS RELATIVE PERCENT 1 % (BEAKER) (test code = 432) BASOPHILS RELATIVE PERCENT 1 % (BEAKER) (test code = 437) NEUTROPHILS ABSOLUTE COUNT 1.64 K/ L 1.56-6.13 (BEAKER) (test code = 670) LYMPHOCYTES ABSOLUTE COUNT 1.85 K/ L 1.18-3.74 (BEAKER) (test code = 414) MONOCYTES ABSOLUTE COUNT (BEAKER) 0.31 K/ L 0.24-0.36 (test code = 415) EOSINOPHILS ABSOLUTE COUNT 0.05 K/ L 0.04-0.36 (BEAKER) (test code = 416) BASOPHILS ABSOLUTE COUNT (BEAKER) 0.02 K/ L 0.01-0.08 (test code = 417) IMMATURE GRANULOCYTES-RELATIVE 0 % 0-1 PERCENT (BEAKER) (test code = 2801) B-TYPE NATRIURETIC FACTOR (BNP)2018-04-18 15:55:00 Test Item Value Reference Range Interpretation Comments B-TYPE NATRIURETIC PEPTIDE (BEAKER) 78 pg/mL 0-100 (test code = 700) TROPONIN [id number] 15:54:00 Test Item Value Reference Range Interpretation Comments TROPONIN I (BEAKER) (test code = 397) < ng/mL 0.00-0.03 Troponin I (TnI) levels must be interpreted in the context of the presenting symptoms and the clinical findings. Elevated TnI levels indicate myocardial damage, but are not specific for ischemic heart disease. Elevated TnI levels are seen in patients with other cardiac conditions (including myocarditis and congestive heart failure), and slight TnI elevations occur in patients with other conditions, including sepsis, renal failure, acidosis, acute neurological disease, and persistent tachyarrhythmia.BASIC METABOLIC [id number] 15:49:00 Test Item Value Reference Range Interpretation Comments SODIUM (BEAKER) 139 meq/L 136-145 (test code = 381) POTASSIUM (BEAKER) 4.3 meq/L 3.5-5.1 Specimen slightly (test code = 379) hemolyzed CHLORIDE (BEAKER) 105 meq/L 98-107 (test code = 382) CO2 (BEAKER) (test 26 meq/L 22-29 code = 355) BLOOD UREA NITROGEN 15 mg/dL 7-21 (BEAKER) (test code = 354) CREATININE (BEAKER) 0.82 mg/dL 0.57-1.25 Specimen slightly (test code = 358) hemolyzed GLUCOSE RANDOM 103 mg/dL 70-105 (BEAKER) (test code = 652) CALCIUM (BEAKER) 9.3 mg/dL 8.4-10.2 (test code = 697) EGFR (BEAKER) (test mL/min/1.73 INSUFFIC IENT CLINICAL code = 1092) sq m DATA TO CALCULA TE ESTIMATED GFR. [id number] 15:46:00 Test Item Value Reference Range Interpretation Comments MAGNESIUM (BEAKER) 2.2 mg/dL 1.6-2.6 Specimen slightly (test code = 627) hemolyzed SCREEN, [id number] 15:39:00 Test Item Value Reference Range Interpretation Comments TEST URINE (BEAKER) (test Negative code = 583) URINALYSIS W/ [id number] 15:39:00 Test Item Value Reference Range Interpretation Comments COLOR (BEAKER) (test code Colorless = 470) CLARITY (BEAKER) (test Clear code = 469) SPECIFIC GRAVITY UA 1.002 1.001-1.035 (BEAKER) (test code = 468) PH UA (BEAKER) (test code 6.5 5.0-8.0 = 467) PROTEIN UA (BEAKER) (test Negative Negative code = 464) GLUCOSE UA (BEAKER) (test Negative Negative code = 365) KETONES UA (BEAKER) (test Negative Negative code = 371) BILIRUBIN UA (BEAKER) Negative Negative (test code = 462) BLOOD UA (BEAKER) (test Negative Negative code = 461) NITRITE UA (BEAKER) (test Negative Negative code = 465) LEUKOCYTE ESTERASE UA Negative Negative (BEAKER) (test code = 466) UROBILINOGEN UA (BEAKER) 0.2 mg/dL 0.2-1.0 (test code = 463) RBC UA (BEAKER) (test code 0 /HPF = 519) WBC UA (BEAKER) (test code < /HPF = 520) SQUAMOUS EPITHELIAL < /HPF (BEAKER) (test code = 516) SOURCE(BEAKER) (test code Urine, Clean Catch = 7687) PT/[id number] 15:38:00 Test Item Value Reference Range Interpretation Comments PROTIME (BEAKER) (test code = 13.1 seconds 11.7-14.7 759) INR (BEAKER) (test code = 370) 1.0 <=5.9 PARTIAL THROMBOPLASTIN TIME 23.2 seconds 22.5-36.0 (BEAKER) (test code = 760) RECOMMENDED COUMADIN/WARFARIN INR THERAPY RANGESSTANDARD DOSE: 2.0 - 3.0 Includes: PROPHYLAXIS for venous thrombosis, systemic embolization; TREATMENT for venous thrombosis and/or pulmonary embolus.HIGH RISK: Target INR is 2.5-3.5 for patients with mechanical heart valves.CBC W/PLT COUNT & AUTO [id number] 15:29:00 Test Item Value Reference Range Interpretation Comments WHITE BLOOD CELL COUNT (BEAKER) 4.7 K/ L 3.5-10.5 (test code = 775) RED BLOOD CELL COUNT (BEAKER) 4.19 M/ L 3.93-5.22 (test code = 761) HEMOGLOBIN (BEAKER) (test code = 13.0 GM/DL 11.2-15.7 410) HEMATOCRIT (BEAKER) (test code = 39.3 % 34.1-44.9 411) MEAN CORPUSCULAR VOLUME (BEAKER) 93.8 fL 79.4-94.8 (test code = 753) MEAN CORPUSCULAR HEMOGLOBIN 31.0 pg 25.6-32.2 (BEAKER) (test code = 751) MEAN CORPUSCULAR HEMOGLOBIN CONC 33.1 GM/DL 32.2-35.5 (BEAKER) (test code = 752) RED CELL DISTRIBUTION WIDTH 14.1 % 11.7-14.4 (BEAKER) (test code = 412) PLATELET COUNT (BEAKER) (test 113 K/CU MM 150-450 L code = 756) MEAN PLATELET VOLUME (BEAKER) 10.8 fL 9.4-12.3 (test code = 754) NUCLEATED RED BLOOD CELLS 0 /100 WBC 0-0 (BEAKER) (test code = 413) NEUTROPHILS RELATIVE PERCENT 58 % (BEAKER) (test code = 429) LYMPHOCYTES RELATIVE PERCENT 34 % (BEAKER) (test code = 430) MONOCYTES RELATIVE PERCENT 7 % (BEAKER) (test code = 431) EOSINOPHILS RELATIVE PERCENT 1 % (BEAKER) (test code = 432) BASOPHILS RELATIVE PERCENT 0 % (BEAKER) (test code = 437) NEUTROPHILS ABSOLUTE COUNT 2.71 K/ L 1.56-6.13 (BEAKER) (test code = 670) LYMPHOCYTES ABSOLUTE COUNT 1.56 K/ L 1.18-3.74 (BEAKER) (test code = 414) MONOCYTES ABSOLUTE COUNT (BEAKER) 0.33 K/ L 0.24-0.36 (test code = 415) EOSINOPHILS ABSOLUTE COUNT 0.03 K/ L 0.04-0.36 L (BEAKER) (test code = 416) BASOPHILS ABSOLUTE COUNT (BEAKER) 0.01 K/ L 0.01-0.08 (test code = 417) IMMATURE GRANULOCYTES-RELATIVE 0 % 0-1 PERCENT (BEAKER) (test code = 2801) [id number] 08:32:00 Test Item Value Reference Range Interpretation Comments Hct (test code = Hct) 33.4 36.0-48.0 [facility]ovqpjnFRWJRREUBT8956-12-93 08:32:00 Test Item Value Reference Range Interpretation Comments MCHC (test code = MCHC) 33.3 32.0-36.0 [facility] TylerAgqnlpqPRHMAGUHLL1693-39-59 08:32:00 Test Item Value Reference Range Interpretation Comments MCV (test code = MCV) 92.3 81.0-99.0 [facility] TylerEuhhtmvTTCICBTWMQ1787-68-00 08:32:00 Test Item Value Reference Range Interpretation Comments RDW (test code = RDW) 15.5 11.5-14.5 [facility] TylerXpjfareVRSKBKWXKG0769-63-10 08:32:00 Test Item Value Reference Range Interpretation Comments MCH (test code = MCH) 30.7 pg 27.0-31.0 [facility] TylerXgkdzlvKFJRYYCEMQ9762-42-07 08:32:00 Test Item Value Reference Range Interpretation Comments WBC (test code = WBC) 8.6 3.7-10.4 [facility] TylerIsutnomJJBXECAREL0877-60-92 08:32:00 Test Item Value Reference Range Interpretation Comments RBC (test code = RBC) 3.62 4.20-5.40 [facility] TylerSlxqtqgWHDRVAUPGY0245-07-77 08:32:00 Test Item Value Reference Range Interpretation Comments PT (test code = PT) 14.2 s 12.0-14.7 [facility] TylerMksjnjkEJEQWUFXQE6780-05-94 08:32:00 Test Item Value Reference Range Interpretation Comments PTT (test code = PTT) 31.7 s 22.9-35.8 [facility] TylerIydmzrtEZSWOLHLFU2649-82-38 08:32:00 Test Item Value Reference Range Interpretation Comments INR (test code = INR) 1.11 0.85-1.17 [facility] TylerKzhtiylTRRTWFJJPW4467-21-88 08:32:00 Test Item Value Reference Range Interpretation Comments Segs (test code = Segs) 77.7 45.0-75.0 [place] [address]-05-23 08:32:00 Test Item Value Reference Range Interpretation Comments Segs-Bands # (test code = Segs-Bands #) 6.7 1.5-8.1 [place] [address]-05-23 08:32:00 Test Item Value Reference Range Interpretation Comments Lymphocytes # (test code = Lymphocytes 1.4 1.0-5.5 #) [facility] TylerNtuvqfbKKEFFZFZCU3206-20-96 08:32:00 Test Item Value Reference Range Interpretation Comments Lymphocytes (test code = Lymphocytes) 16.7 20.0-40.0 [facility] TylerLwwvrtcXQINXSQWDJ6715-54-64 08:32:00 Test Item Value Reference Range Interpretation Comments Basophils (test code = 0.3 See_Comment [Aut omated message] The Basophils) system which ge nerated this result tra nsmitted reference range : <=1.0. The reference r yasmine was not used to int erpret this result as normal/abnormal . [facility] TylerBxmccplETYFMCHEQX0211-78-65 08:32:00 Test Item Value Reference Range Interpretation Comments Eosinophils (test code = 0.2 See_Comment [A utomated message] The Eosinophils) system which ge nerated this result tra nsmitted reference range : <=4.0. The reference r yasmine was not used to int erpret this result as normal/abnormal . [facility] TylerBxnleqhHUDKTAPKHW0210-96-49 08:32:00 Test Item Value Reference Range Interpretation Comments Monocytes (test code = Monocytes) 5.1 2.0-12.0 [facility] TylerInmbhlxYUTQSZETXO3817-61-73 08:32:00 Test Item Value Reference Range Interpretation Comments Monocytes # (test code 0.4 See_Comment [Aut omated message] The = Monocytes #) system which generated this result tra nsmitted reference range : <=0.8. The reference r yasmine was not used to int erpret this result as normal/abnormal . [facility]ik[facility]qqAARCFKDDAT8088[facility] 08:32:00 Test Item Value Reference Range Interpretation Comments Eosinophils # (test code 0.0 See_Comment [A utomated message] The = Eosinophils #) system whic h generated this result tra nsmitted reference range : <=0.5. The reference r yasmine was not used to int erpret this result as normal/abnormal . [facility]WowspssVASKJSCKRXZZ7243-49-30 08:32:00 Test Item Value Reference Range Interpretation Comments CO2 (test code = CO2) 27 24-32 [facility] HospitalZfbnkshDRHOKPFOWWJK3977-56-48 08:32:00 Test Item Value Reference Range Interpretation Comments Glucose Lvl (test code = Glucose Lvl) 89 70-99 [facility] HospitalVgkrlfpOAHSZJZZEKZA3894-56-49 08:32:00 Test Item Value Reference Range Interpretation Comments BUN (test code = BUN) 15 7-22 [facility] HospitalGnjtbncNBMYRQPJBPYA3149-16-18 08:32:00 Test Item Value Reference Range Interpretation Comments eGFR (test code = eGFR) 99 [facility] HospitalKwxurpgJAKIKAFTKGAJ0987-53-89 08:32:00 Test Item Value Reference Range Interpretation Comments Sodium Lvl (test code = Sodium Lvl) 140 135-145 [facility] HospitalUkipnoaYNTUQWSASBEG3736-37-63 08:32:00 Test Item Value Reference Range Interpretation Comments Creatinine Lvl (test code = Creatinine 0.8 0.5-1.4 Lvl) [facility] HospitalIuqkjohRZLIJIWBFWAA4706-53-53 08:32:00 Test Item Value Reference Range Interpretation Comments Potassium Lvl (test code = Potassium 4.2 3.5-5.1 Lvl) [facility] HospitalVywgjwxTLWOBQOYKIPJ8910-61-41 08:32:00 Test Item Value Reference Range Interpretation Comments Chloride Lvl (test code = Chloride Lvl) 106 95-109 [facility] HospitalPknodyfXKKFXKZTNVTO0019-05-05 08:32:00 Test Item Value Reference Range Interpretation Comments Calcium Lvl (test code = Calcium Lvl) 8.4 8.5-10.5 [facility] HospitalNmhktbcFIQOCQNJHMDX6289-21-01 08:32:00 Test Item Value Reference Range Interpretation Comments AGAP (test code = AGAP) 11.2 10.0-20.0 [facility] TylerIwwrytuGIXHYNRSDW9145-64-35 08:32:00 Test Item Value Reference Range Interpretation Comments Platelet (test code = Platelet) 110 133-450 [facility] TylerOujefboKKHWZSQKNP3812-29-85 08:32:00 Test Item Value Reference Range Interpretation Comments MPV (test code = MPV) 8.5 7.4-10.4 [facility] TylerTepbugxFWRPBGCARX4799-89-65 08:32:00 Test Item Value Reference Range Interpretation Comments Hgb (test code = Hgb) 11.1 12.0-16.0 [facility] TylerLclcaalPIPFCIIILW6917-72-36 08:32:00 Test Item Value Reference Range Interpretation Comments MCV (test code = MCV) 92.3 81.0-99.0 [facility] TylerOigvfiiJFIFTWUMQW9699-11-63 08:32:00 Test Item Value Reference Range Interpretation Comments RDW (test code = RDW) 15.5 11.5-14.5 [facility] TylerChtynciNZDIYLWAMA4234-76-26 08:32:00 Test Item Value Reference Range Interpretation Comments MCH (test code = MCH) 30.7 pg 27.0-31.0 [facility] TylerEneqgwfAPEDGLBKZI2664-81-23 08:32:00 Test Item Value Reference Range Interpretation Comments WBC (test code = WBC) 8.6 3.7-10.4 [facility] TylerOxjazdoFHIPCVFZAU0220-84-58 08:32:00 Test Item Value Reference Range Interpretation Comments RBC (test code = RBC) 3.62 4.20-5.40 [facility] TylerRaiqbrcOBSEOLZFOH0627-44-55 08:32:00 Test Item Value Reference Range Interpretation Comments PT (test code = PT) 14.2 s 12.0-14.7 [facility] TylerSuvrsufQEODEKXORS1678-43-13 08:32:00 Test Item Value Reference Range Interpretation Comments PTT (test code = PTT) 31.7 s 22.9-35.8 [facility] TylerNnymtfvBBSAOVUCAC6732-46-02 08:32:00 Test Item Value Reference Range Interpretation Comments INR (test code = INR) 1.11 0.85-1.17 [facility] TylerCncalrvLUBWAAOMZZ4815-55-12 08:32:00 Test Item Value Reference Range Interpretation Comments Segs (test code = Segs) 77.7 45.0-75.0 [place] 147504-05-23 08:32:00 Test Item Value Reference Range Interpretation Comments Segs-Bands # (test code = Segs-Bands #) 6.7 1.5-8.1 [facility] TylerYzzfcjhLEHNZCNICR5157-53-35 08:32:00 Test Item Value Reference Range Interpretation Comments Lymphocytes # (test code = Lymphocytes 1.4 1.0-5.5 #) [facility] TylerWwzrotpCXEFACJQCV9979-31-23 08:32:00 Test Item Value Reference Range Interpretation Comments Lymphocytes (test code = Lymphocytes) 16.7 20.0-40.0 [facility] TylerWeqamzyWFKRXJTLHJ3325-37-98 08:32:00 Test Item Value Reference Range Interpretation Comments Basophils (test code = 0.3 See_Comment [Aut omated message] The Basophils) system which ge nerated this result tra nsmitted reference range : <=1.0. The reference r yasmine was not used to int erpret this result as normal/abnormal . [facility] TylerVttlsawMAMPGJNBHK1648-12-95 08:32:00 Test Item Value Reference Range Interpretation Comments Eosinophils (test code = 0.2 See_Comment [A utomated message] The Eosinophils) system which ge nerated this result tra nsmitted reference range : <=4.0. The reference r yasmine was not used to int erpret this result as normal/abnormal . [facility] TylerLouvkiqYSUFAPHGKD9915-27-74 08:32:00 Test Item Value Reference Range Interpretation Comments Monocytes (test code = Monocytes) 5.1 2.0-12.0 [facility] TylerOczteqfXEMUTFNJJW1135-50-40 08:32:00 Test Item Value Reference Range Interpretation Comments Monocytes # (test code 0.4 See_Comment [Aut omated message] The = Monocytes #) system which generated this result tra nsmitted reference range : <=0.8. The reference r yasmine was not used to int erpret this result as normal/abnormal . [facility] TylerXlsojjcLFBVPJPTSZ2667-28-30 08:32:00 Test Item Value Reference Range Interpretation Comments Eosinophils # (test code 0.0 See_Comment [A utomated message] The = Eosinophils #) system whic h generated this result tra nsmitted reference range : <=0.5. The reference r yasmine was not used to int erpret this result as normal/abnormal . [facility] HospitalFxomsylEUAIVGWKOSPE4123-88-71 08:32:00 Test Item Value Reference Range Interpretation Comments CO2 (test code = CO2) 27 24-32 [facility] HospitalEfqbaxaMYLKAKKEDBQP0159-93-17 08:32:00 Test Item Value Reference Range Interpretation Comments Glucose Lvl (test code = Glucose Lvl) 89 70-99 [facility] HospitalNnyeoiiQEYJSFZEOOLA0194-61-97 08:32:00 Test Item Value Reference Range Interpretation Comments BUN (test code = BUN) 15 7-22 [facility] HospitalVksaicmNWAEPMMHQUMF3282-77-88 08:32:00 Test Item Value Reference Range Interpretation Comments eGFR (test code = eGFR) 99 [facility] HospitalXibarcrRUTBWOOVBYPB0352-09-10 08:32:00 Test Item Value Reference Range Interpretation Comments Sodium Lvl (test code = Sodium Lvl) 140 135-145 [facility] HospitalYwoiyrmVSFLTWXGQUZV7247-76-52 08:32:00 Test Item Value Reference Range Interpretation Comments Creatinine Lvl (test code = Creatinine 0.8 0.5-1.4 Lvl) [facility] HospitalWynvwdqJFAVHSUBGUAG1483-75-94 08:32:00 Test Item Value Reference Range Interpretation Comments Potassium Lvl (test code = Potassium 4.2 3.5-5.1 Lvl) [facility] HospitalMcbjouvQTJBORXJFOPR7672-13-99 08:32:00 Test Item Value Reference Range Interpretation Comments Chloride Lvl (test code = Chloride Lvl) 106 95-109 [facility] HospitalYlzttwmYORHEGLEZFTI5122-21-59 08:32:00 Test Item Value Reference Range Interpretation Comments Calcium Lvl (test code = Calcium Lvl) 8.4 8.5-10.5 [facility] HospitalBfgjitqXTNJTZMSCECZ9467-95-41 08:32:00 Test Item Value Reference Range Interpretation Comments AGAP (test code = AGAP) 11.2 10.0-20.0 [facility] TylerDdtpecfGWGWCWUIAE2601-55-49 08:32:00 Test Item Value Reference Range Interpretation Comments Platelet (test code = Platelet) 110 133-450 [facility] TylerFndfhwbKJWDJKXVYN0621-09-33 08:32:00 Test Item Value Reference Range Interpretation Comments MPV (test code = MPV) 8.5 7.4-10.4 [facility] TylerXskmlykPOUVFGOEYI3002-06-98 08:32:00 Test Item Value Reference Range Interpretation Comments Hgb (test code = Hgb) 11.1 12.0-16.0 [facility] TylerDsgeiwcGCZWUONFOH2028-68-22 08:32:00 Test Item Value Reference Range Interpretation Comments Hct (test code = Hct) 33.4 36.0-48.0 [facility] TylerDerxlrgGLTGRAQMSY0248-71-17 08:32:00 Test Item Value Reference Range Interpretation Comments MCHC (test code = MCHC) 33.3 32.0-36.0 [facility] HospitalZrkibqfHWHFVPDFGOYP3445-03-80 10:24:00 Test Item Value Reference Range Interpretation Comments AGAP (test code = AGAP) 14.6 10.0-20.0 [facility] HospitalMgrtubwASBTZOONFGKC0128-98-32 10:24:00 Test Item Value Reference Range Interpretation Comments CO2 (test code = CO2) 24 -32 [facility] HospitalPbzioixEIOYBCDTFKDA8827-03-00 10:24:00 Test Item Value Reference Range Interpretation Comments BUN (test code = BUN) 15 - [facility] HospitalZepmemiSNNXGETPXTIJ1852-04-01 10:24:00 Test Item Value Reference Range Interpretation Comments Glucose Lvl (test code = Glucose Lvl) 97 70-99 [facility] HospitalQdfnnrdANRCZERCDGUX0914-81-27 10:24:00 Test Item Value Reference Range Interpretation Comments eGFR (test code = eGFR) 99 [facility] HospitalRmjuiqxWPRADSNXZOIW6802-20-97 10:24:00 Test Item Value Reference Range Interpretation Comments Potassium Lvl (test code = Potassium 4.6 3.5-5.1 Lvl) [facility] HospitalYcavvdiKOWAPBFKNWGA8740-53-12 10:24:00 Test Item Value Reference Range Interpretation Comments Chloride Lvl (test code = Chloride Lvl) 102 95-109 [facility] HospitalFtjdkwpOIJPTYJLAWOW0450-54-22 10:24:00 Test Item Value Reference Range Interpretation Comments Calcium Lvl (test code = Calcium Lvl) 8.6 8.5-10.5 [facility] HospitalNwvmsigXWKCFXHRBUPP9338-82-06 10:24:00 Test Item Value Reference Range Interpretation Comments Sodium Lvl (test code = Sodium Lvl) 136 135-145 [facility] HospitalDycntpfOCYDXVWRNIEF6482-88-58 10:24:00 Test Item Value Reference Range Interpretation Comments Creatinine Lvl (test code = Creatinine 0.8 0.5-1.4 Lvl) [facility] TylerYmmgtcwPHHNEIOOKU9310-53-09 10:24:00 Test Item Value Reference Range Interpretation Comments Lymphocytes # (test code = Lymphocytes 1.0 1.0-5.5 #) [facility] TylerVfdxrjeMDRMOBWGGL0405-37-18 10:24:00 Test Item Value Reference Range Interpretation Comments Segs-Bands # (test code = Segs-Bands #) 9.6 1.5-8.1 [facility] TylerVtcmbgpILWMBGBOGO9226-83-48 10:24:00 Test Item Value Reference Range Interpretation Comments Segs (test code = Segs) 87.2 45.0-75.0 [facility] TylerUtkctvrEUJTWNTIBQ7526-36-68 10:24:00 Test Item Value Reference Range Interpretation Comments Monocytes (test code = Monocytes) 3.6 2.0-12.0 [facility] TylerUlbmqttZOWKKEUFHF6762-13-72 10:24:00 Test Item Value Reference Range Interpretation Comments Eosinophils # (test code 0.0 See_Comment [A utomated message] The = Eosinophils #) system wh h generated this result tra nsmitted reference range : <=0.5. The reference r yasmine was not used to int erpret this result as normal/abnormal . [facility] TylerQduycuuAIANRULMGF8081-07-01 10:24:00 Test Item Value Reference Range Interpretation Comments Lymphocytes (test code = Lymphocytes) 9.0 20.0-40.0 [facility] TylerUpbmlvtTYVHIOBLTH0432-17-35 10:24:00 Test Item Value Reference Range Interpretation Comments Basophils (test code = 0.1 See_Comment [Aut omated message] The Basophils) system which ge nerated this result tra nsmitted reference range : <=1.0. The reference r yasmine was not used to int erpret this result as normal/abnormal . [facility] TylerRgdilrxYZTLWNQGBM6459-68-29 10:24:00 Test Item Value Reference Range Interpretation Comments Eosinophils (test code = 0.1 See_Comment [A utomated message] The Eosinophils) system which ge nerated this result tra nsmitted reference range : <=4.0. The reference r yasmine was not used to int erpret this result as normal/abnormal . [facility] TylerNjlodimPDXPWFMTUA9331-02-16 10:24:00 Test Item Value Reference Range Interpretation Comments Monocytes # (test code 0.4 See_Comment [Aut omated message] The = Monocytes #) system which generated this result tra nsmitted reference range : <=0.8. The reference r yasmine was not used to int erpret this result as normal/abnormal . [facility] TylerLgaseykDCTDPGCHOD8151-78-70 10:24:00 Test Item Value Reference Range Interpretation Comments Plt Morph (test code = Normal (03/29/14 5:24 Plt Morph) AM) [facility] TylerBxkbmlvNJDWXFFBLS2073-48-14 10:24:00 Test Item Value Reference Range Interpretation Comments RBC Morph (test code = Normal (03/29/14 5:24 RBC Morph) AM) [facility] TylerLeijmbcKNYLMSOXCP3895-43-28 10:24:00 Test Item Value Reference Range Interpretation Comments INR (test code = INR) 1.20 0.85-1.17 [facility] TylerHnvchzpWVYXDRJGOJ7506-18-83 10:24:00 Test Item Value Reference Range Interpretation Comments PT (test code = PT) 15.1 s 12.0-14.7 [facility] TylerMjfuhalUNRWDEPYTN5079-63-96 10:24:00 Test Item Value Reference Range Interpretation Comments Platelet (test code = Platelet) 128 133-450 [facility] TylerKmlwssbCIAYSMLBPJ8864-21-94 10:24:00 Test Item Value Reference Range Interpretation Comments MPV (test code = MPV) 9.2 7.4-10.4 [facility] TylerVihrjgeMLCRNJIAOE9746-55-05 10:24:00 Test Item Value Reference Range Interpretation Comments RDW (test code = RDW) 15.2 11.5-14.5 [facility] TylerBdifhonUFDQHZROMC2428-38-47 10:24:00 Test Item Value Reference Range Interpretation Comments MCHC (test code = MCHC) 33.3 32.0-36.0 [facility] TylerWgztljnCJWSTXYADU4511-27-15 10:24:00 Test Item Value Reference Range Interpretation Comments MCH (test code = MCH) 30.7 pg 27.0-31.0 [facility] TylerSmhybjfWGVVTWAPYR3221-96-15 10:24:00 Test Item Value Reference Range Interpretation Comments Hgb (test code = Hgb) 12.4 12.0-16.0 [facility] TylerLdzytovTNUUXESEWJ8486-61-83 10:24:00 Test Item Value Reference Range Interpretation Comments RBC (test code = RBC) 4.04 4.20-5.40 [facility] TylerSckozyvWUKQIKRMGA2991-04-22 10:24:00 Test Item Value Reference Range Interpretation Comments WBC (test code = WBC) 11.0 3.7-10.4 [facility] TylerByaheshZJEHQCUPKM7493-74-84 10:24:00 Test Item Value Reference Range Interpretation Comments Hct (test code = Hct) 37.2 36.0-48.0 [facility] TylerWxdyeuwSXMGYJUZRC5632-45-87 10:24:00 Test Item Value Reference Range Interpretation Comments MCV (test code = MCV) 92.0 81.0-99.0 [facility] TylerMoepvflPLOEIFQPJM6504-28-32 10:24:00 Test Item Value Reference Range Interpretation Comments PTT (test code = PTT) 29.3 s 22.9-35.8 [facility] HospitalUsimeiuWHQRAGUKKCCY1931-85-83 10:24:00 Test Item Value Reference Range Interpretation Comments AGAP (test code = AGAP) 14.6 10.0-20.0 [facility] HospitalOccllftFJHDZGGLXLZQ3558-80-33 10:24:00 Test Item Value Reference Range Interpretation Comments CO2 (test code = CO2) 24 24-32 [facility] HospitalJftdbilCXPVYOQMVJSR8287-59-32 10:24:00 Test Item Value Reference Range Interpretation Comments BUN (test code = BUN) 15 7-22 [facility] HospitalWnqnjotJDZBBIDFYNIY1873-85-86 10:24:00 Test Item Value Reference Range Interpretation Comments Glucose Lvl (test code = Glucose Lvl) 97 70-99 [facility] HospitalTvbeffbRXKOQQRETVAX2874-47-74 10:24:00 Test Item Value Reference Range Interpretation Comments eGFR (test code = eGFR) 99 [facility] HospitalIsvjvrbZKLSCFANMYZS9371-45-69 10:24:00 Test Item Value Reference Range Interpretation Comments Potassium Lvl (test code = Potassium 4.6 3.5-5.1 Lvl) [facility] HospitalSlypnhuXMPJVAEMMLYB1466-70-88 10:24:00 Test Item Value Reference Range Interpretation Comments Chloride Lvl (test code = Chloride Lvl) 102 95-109 [facility] HospitalIsepwpbUMOCHZNUZEVW1923-63-10 10:24:00 Test Item Value Reference Range Interpretation Comments Calcium Lvl (test code = Calcium Lvl) 8.6 8.5-10.5 [facility] HospitalCsnblovTORCGYOZHJAI9407-82-68 10:24:00 Test Item Value Reference Range Interpretation Comments Sodium Lvl (test code = Sodium Lvl) 136 135-145 [facility] HospitalEtcjglsMIMAXQHANKGL6495-88-17 10:24:00 Test Item Value Reference Range Interpretation Comments Creatinine Lvl (test code = Creatinine 0.8 0.5-1.4 Lvl) [facility] TylerHtcsihkDRKWPDEILI8137-27-14 10:24:00 Test Item Value Reference Range Interpretation Comments Lymphocytes # (test code = Lymphocytes 1.0 1.0-5.5 #) [facility] TylerBeacanlOSNDLTRKSK7493-51-88 10:24:00 Test Item Value Reference Range Interpretation Comments Segs-Bands # (test code = Segs-Bands #) 9.6 1.5-8.1 [facility] TylerXcdkogrEOAPJPRSZM7794-64-87 10:24:00 Test Item Value Reference Range Interpretation Comments Segs (test code = Segs) 87.2 45.0-75.0 [facility] TylerEegcuhyGOITEMZBBL5579-93-04 10:24:00 Test Item Value Reference Range Interpretation Comments Monocytes (test code = Monocytes) 3.6 2.0-12.0 [facility] TylerTbsafkkEVAHTJPUQF2933-23-18 10:24:00 Test Item Value Reference Range Interpretation Comments Eosinophils # (test code 0.0 See_Comment [A utomated message] The = Eosinophils #) system wh h generated this result tra nsmitted reference range : <=0.5. The reference r yasmine was not used to int erpret this result as normal/abnormal . [facility] TylerVpemvkvDMIOMHGJSD8854-21-27 10:24:00 Test Item Value Reference Range Interpretation Comments Lymphocytes (test code = Lymphocytes) 9.0 20.0-40.0 [facility] TylerAnvazujYQZFFNXBBG3296-86-95 10:24:00 Test Item Value Reference Range Interpretation Comments Basophils (test code = 0.1 See_Comment [Aut omated message] The Basophils) system which ge nerated this result tra nsmitted reference range : <=1.0. The reference r yasmine was not used to int erpret this result as normal/abnormal . [facility] TylerYvisyrsNKXISVIFBO8009-75-12 10:24:00 Test Item Value Reference Range Interpretation Comments Eosinophils (test code = 0.1 See_Comment [A utomated message] The Eosinophils) system which ge nerated this result tra nsmitted reference range : <=4.0. The reference r yasmine was not used to int erpret this result as normal/abnormal . [facility] TylerJlxrrajMTREJAPEWO6540-74-28 10:24:00 Test Item Value Reference Range Interpretation Comments Monocytes # (test code 0.4 See_Comment [Aut omated message] The = Monocytes #) system which generated this result tra nsmitted reference range : <=0.8. The reference r yasmine was not used to int erpret this result as normal/abnormal . [facility]YykoyalOGPPWPWSDH9165-49-25 10:24:00 Test Item Value Reference Range Interpretation Comments Plt Morph (test code = Normal (03/29/14 5:24 Plt Morph) AM) [facility] TylerFnqtzoxQMNSKYMLMM1921-13-98 10:24:00 Test Item Value Reference Range Interpretation Comments RBC Morph (test code = Normal (03/29/14 5:24 RBC Morph) AM) [facility] TylerJofnhxdQEVHHXAOCF0223-58-67 10:24:00 Test Item Value Reference Range Interpretation Comments INR (test code = INR) 1.20 0.85-1.17 [facility] TylerXcgfaxxFABTLBJHLR3740-32-52 10:24:00 Test Item Value Reference Range Interpretation Comments PT (test code = PT) 15.1 s 12.0-14.7 [facility] TylerBghovarTZLKDLYLEC3590-26-91 10:24:00 Test Item Value Reference Range Interpretation Comments Platelet (test code = Platelet) 128 133-450 [facility] TylerBppeymbMWQCXHHQNZ0059-55-33 10:24:00 Test Item Value Reference Range Interpretation Comments MPV (test code = MPV) 9.2 7.4-10.4 [facility] TylerLdmcxbiRIXQZJEBFS0120-85-65 10:24:00 Test Item Value Reference Range Interpretation Comments RDW (test code = RDW) 15.2 11.5-14.5 [facility] TylerZrhedckRGAHTGXJNS9634-11-12 10:24:00 Test Item Value Reference Range Interpretation Comments MCHC (test code = MCHC) 33.3 32.0-36.0 [facility] TylerSkgjcuoGRSYJMULMT1530-85-73 10:24:00 Test Item Value Reference Range Interpretation Comments MCH (test code = MCH) 30.7 pg 27.0-31.0 [facility] TylerPzxgvdxNHASUIZUUR8322-91-84 10:24:00 Test Item Value Reference Range Interpretation Comments Hgb (test code = Hgb) 12.4 12.0-16.0 [facility] TylerMkvxighUSAZPIZEAP4893-61-07 10:24:00 Test Item Value Reference Range Interpretation Comments RBC (test code = RBC) 4.04 4.20-5.40 [facility]soquxmLRKEVLZHIC0323-73-96 10:24:00 Test Item Value Reference Range Interpretation Comments WBC (test code = WBC) 11.0 3.7-10.4 [facility] TylerEqtsyudYYEMQOKNBV6386-45-50 10:24:00 Test Item Value Reference Range Interpretation Comments Hct (test code = Hct) 37.2 36.0-48.0 [facility] TylerGwvkwqaOZECVWQFPK1229-98-72 10:24:00 Test Item Value Reference Range Interpretation Comments MCV (test code = MCV) 92.0 81.0-99.0 [facility]OfsfberGCLDTYANYA2116-58-95 10:24:00 Test Item Value Reference Range Interpretation Comments PTT (test code = PTT) 29.3 s 22.9-35.8 [facility] [employer] [id number] 15:15:00 Test Item Value Reference Range Interpretation Comments ABO/Rh (test code = ABO/Rh) O POS [facility] [employer] [id number] 15:15:00 Test Item Value Reference Range Interpretation Comments Antibody Scrn (test Negative (03/28/14 code = Antibody Scrn) 10:15 AM) [facility] [employer] [id number] 15:15:00 Test Item Value Reference Range Interpretation Comments ABO/Rh (test code = ABO/Rh) O POS [facility] [employer] [id number] 15:15:00 Test Item Value Reference Range Interpretation Comments Antibody Scrn (test Negative (03/28/14 code = Antibody Scrn) 10:15 AM) [facility] [id number] 16:00:00 Test Item Value Reference Range Interpretation Comments Vitamin D, 25-OH, Total (test code = 29 30-100 Vitamin D, 25-OH, Total) [facility] AreaFldyuebZOXQPEEABXWK2616-40-58 16:00:00 Test Item Value Reference Range Interpretation Comments AGAP (test code = AGAP) 12.3 10.0-20.0 [facility] HospitalYekcklzISIKALTKEBQF7092-59-66 16:00:00 Test Item Value Reference Range Interpretation Comments B/C Ratio (test code = B/C Ratio) 15 6-25 [facility] HospitalXrttjzpBKDFFQKOABBJ3273-63-56 16:00:00 Test Item Value Reference Range Interpretation Comments Globulin (test code = Globulin) 3.4 2.0-4.0 [facility] HospitalVjlfwukGJUFFEACKLHK1836-07-28 16:00:00 Test Item Value Reference Range Interpretation Comments A/G Ratio (test code = A/G Ratio) 1.1 0.7-1.6 [facility] HospitalEhxgowoCASWLWUNGOZA6189-56-19 16:00:00 Test Item Value Reference Range Interpretation Comments eGFR (test code = eGFR) 99 [facility] HospitalInjezslCLCTHNJCCFXY9518-68-26 16:00:00 Test Item Value Reference Range Interpretation Comments Potassium Lvl (test code = Potassium 4.3 3.5-5.1 Lvl) [facility] HospitalZbljblfRBENBQPZWEIS7585-15-11 16:00:00 Test Item Value Reference Range Interpretation Comments Chloride Lvl (test code = Chloride Lvl) 105 95-109 [facility] HospitalAtanhkzEZJNKZXVGFBZ5273-20-09 16:00:00 Test Item Value Reference Range Interpretation Comments CO2 (test code = CO2) 28 24-32 [facility] HospitalTunlzgzUHWIURLZDXTR3148-94-44 16:00:00 Test Item Value Reference Range Interpretation Comments Calcium Lvl (test code = Calcium Lvl) 8.6 8.5-10.5 [facility] HospitalDaehanlTBCGYUCCTXMW4709-51-70 16:00:00 Test Item Value Reference Range Interpretation Comments Total Protein (test code = Total 7.0 6.4-8.4 Protein) [facility] HospitalEelhgksCZQIMGCFMQCA6299-75-09 16:00:00 Test Item Value Reference Range Interpretation Comments Albumin Lvl (test code = Albumin Lvl) 3.6 3.5-5.0 [facility] HospitalQbolrvaMIDNBTNCISRG6049-89-35 16:00:00 Test Item Value Reference Range Interpretation Comments ALT (test code = ALT) 15 See_Comment [Auto mated message] The system which ge nerated this result transmit keith reference range : <=65. The reference range was not used to interpr et this result as chago l/abnormal. [facility] HospitalEqzjyazCDDNHUQCRUZD1477-30-02 16:00:00 Test Item Value Reference Range Interpretation Comments AST (test code = AST) 12 See_Comment [Auto mated message] The system which ge nerated this result transmit keith reference range : <=37. The reference range was not used to interpr et this result as chago l/abnormal. [facility] HospitalEhygmmhCYIVJVSLCUZS0198-29-59 16:00:00 Test Item Value Reference Range Interpretation Comments Alk Phos (test code = Alk Phos) 83 39-136 [facility] HospitalDwggguzFRQHANXCLYJR0585-26-99 16:00:00 Test Item Value Reference Range Interpretation Comments Bili Total (test code = Bili Total) 0.7 0.2-1.3 [facility] HospitalBtjmeosLOILRCJDDDDD6475-93-98 16:00:00 Test Item Value Reference Range Interpretation Comments Sodium Lvl (test code = Sodium Lvl) 141 135-145 [facility] HospitalOkngirlYFCDPYUMHPSK9237-57-62 16:00:00 Test Item Value Reference Range Interpretation Comments BUN (test code = BUN) 12 7-22 [facility] HospitalVdigllbNCMSJRBHDPLK0813-69-78 16:00:00 Test Item Value Reference Range Interpretation Comments Glucose Lvl (test code = Glucose Lvl) 84 70-99 [facility] HospitalYpjghszHTIZCAYZUPBJ2040-05-91 16:00:00 Test Item Value Reference Range Interpretation Comments Creatinine Lvl (test code = Creatinine 0.8 0.5-1.4 Lvl) [facility]TlqmarqUICIULQGHI4536-85-70 16:00:00 Test Item Value Reference Range Interpretation Comments INR (test code = INR) 0.96 0.85-1.17 [facility] TylerZkuhotfCLPTTWPQWO9509-49-66 16:00:00 Test Item Value Reference Range Interpretation Comments PTT (test code = PTT) 29.2 s 22.9-35.8 [facility] TylerYkvxjxbBWHKHWYXOW0420-11-57 16:00:00 Test Item Value Reference Range Interpretation Comments PT (test code = PT) 12.7 s 12.0-14.7 [facility] TylerPnarlihPGOOSYUOJP5176-65-31 16:00:00 Test Item Value Reference Range Interpretation Comments MCH (test code = MCH) 31.3 pg 27.0-31.0 [facility] TylerJihvvokOZBBOTGQSE5715-70-18 16:00:00 Test Item Value Reference Range Interpretation Comments MCHC (test code = MCHC) 33.9 32.0-36.0 [facility] TylerEqfocrbKBWVMOSDTP2434-60-63 16:00:00 Test Item Value Reference Range Interpretation Comments RBC (test code = RBC) 4.14 4.20-5.40 [facility] TylerRyaknzkIVOAPFGBKQ3689-28-72 16:00:00 Test Item Value Reference Range Interpretation Comments Hct (test code = Hct) 38.2 36.0-48.0 [facility] TylerJkjdnvmNRCUQUEXOJ0547-43-79 16:00:00 Test Item Value Reference Range Interpretation Comments MCV (test code = MCV) 92.2 81.0-99.0 [facility] TylerZtmgadkYHDHBSVOIN2227-14-78 16:00:00 Test Item Value Reference Range Interpretation Comments Hgb (test code = Hgb) 12.9 12.0-16.0 [facility] TylerJlkikdgASHDWYSCUU3089-33-52 16:00:00 Test Item Value Reference Range Interpretation Comments WBC (test code = WBC) 5.2 3.7-10.4 [facility] TylerPuuxqvbNPEAQGHKDY8804-90-64 16:00:00 Test Item Value Reference Range Interpretation Comments Platelet (test code = Platelet) 133 133-450 [facility] TylerWndttufLJXANKFADC2234-79-30 16:00:00 Test Item Value Reference Range Interpretation Comments MPV (test code = MPV) 8.8 7.4-10.4 [facility] TylerEjdfsziCCEAPZNQQV1758-76-33 16:00:00 Test Item Value Reference Range Interpretation Comments RDW (test code = RDW) 15.3 11.5-14.5 [facility] TylerOiqmdwaSFIPZLSANH7154-64-12 16:00:00 Test Item Value Reference Range Interpretation Comments Basophils (test code = 0.4 See_Comment [Aut omated message] The Basophils) system which ge nerated this result tra nsmitted reference range : <=1.0. The reference r yasmine was not used to int erpret this result as normal/abnormal . [facility] TylerCjbzlgnKKVQLMAFDH6047-24-27 16:00:00 Test Item Value Reference Range Interpretation Comments Basophils # (test code 0.0 See_Comment [Aut omated message] The = Basophils #) system which generated this result tra nsmitted reference range : <=0.2. The reference r yasmine was not used to int erpret this result as normal/abnormal . [facility] TylerAhrtnohRNYLBEAWWW0509-73-49 16:00:00 Test Item Value Reference Range Interpretation Comments Monocytes # (test code 0.4 See_Comment [Aut omated message] The = Monocytes #) system which generated this result tra nsmitted reference range : <=0.8. The reference r yasmine was not used to int erpret this result as normal/abnormal . [facility]NfvmibcBUERBPPCKW2941-51-32 16:00:00 Test Item Value Reference Range Interpretation Comments Lymphocytes # (test code = Lymphocytes 1.9 1.0-5.5 #) [facility]oniaXqtqhuiWQEIWSLPFE8660-95-60 16:00:00 Test Item Value Reference Range Interpretation Comments Eosinophils # (test code 0.1 See_Comment [A utomated message] The = Eosinophils #) system whic h generated this result tra nsmitted reference range : <=0.5. The reference r yasmine was not used to int erpret this result as normal/abnormal . [facility]oniaLkhmjdoLIGUFUJKET4227-71-01 16:00:00 Test Item Value Reference Range Interpretation Comments Segs-Bands # (test code = Segs-Bands #) 2.8 1.5-8.1 [facility]oniaWiyblaiWBUMHZQYKJ9496-19-88 16:00:00 Test Item Value Reference Range Interpretation Comments Segs (test code = Segs) 54.2 45.0-75.0 [facility]oniaUlsscagXHFSZCUSHJ8823-11-08 16:00:00 Test Item Value Reference Range Interpretation Comments Lymphocytes (test code = Lymphocytes) 37.1 20.0-40.0 [facility]oniaJggajdjKYEWKPMIXN1778-14-20 16:00:00 Test Item Value Reference Range Interpretation Comments Eosinophils (test code = 1.1 See_Comment [A utomated message] The Eosinophils) system which ge nerated this result tra nsmitted reference range : <=4.0. The reference r yasmine was not used to int erpret this result as normal/abnormal . [facility]QsmspfsBIHIDNSKHK7217-02-22 16:00:00 Test Item Value Reference Range Interpretation Comments Monocytes (test code = Monocytes) 7.2 2.0-12.0 [facility] HospitalPARATHYROID VLXJBMB4451-76-37 16:00:00 Test Item Value Reference Range Interpretation Comments PTH Intact (test code = PTH Intact) 76.1 11.1-79.5 [facility] HospitalSPECIAL DVYIJQJKG2188-53-75 16:00:00 Test Item Value Reference Range Interpretation Comments Hgb A1C (test code = Hgb A1C) 6.1 [facility] HospitalCHEM UCRHG9582-40-58 16:00:00 Test Item Value Reference Range Interpretation Comments Vitamin D, 25-OH, Total (test code = 29 30-100 Vitamin D, 25-OH, Total) [facility] HospitalRdtwemjJFHXRUGUVTLR8667-79-76 16:00:00 Test Item Value Reference Range Interpretation Comments AGAP (test code = AGAP) 12.3 10.0-20.0 [facility] HospitalLshqazxAJFVEWKHPQFU9259-06-08 16:00:00 Test Item Value Reference Range Interpretation Comments B/C Ratio (test code = B/C Ratio) 15 6-25 [facility] HospitalUibhxunXQJEUCVQMBJL4777-45-01 16:00:00 Test Item Value Reference Range Interpretation Comments Globulin (test code = Globulin) 3.4 2.0-4.0 [facility] HospitalYxjbcspFGBDFQBPNAIH5072-55-64 16:00:00 Test Item Value Reference Range Interpretation Comments A/G Ratio (test code = A/G Ratio) 1.1 0.7-1.6 [facility] HospitalSsdhfraESWTHKZDCLQO7203-12-72 16:00:00 Test Item Value Reference Range Interpretation Comments eGFR (test code = eGFR) 99 [facility] HospitalCprzlfnIHSTMUEYAOUK2416-03-50 16:00:00 Test Item Value Reference Range Interpretation Comments Potassium Lvl (test code = Potassium 4.3 3.5-5.1 Lvl) [facility] HospitalWtiipcuZXDGIAMOXMVQ1517-19-54 16:00:00 Test Item Value Reference Range Interpretation Comments Chloride Lvl (test code = Chloride Lvl) 105 95-109 [facility] HospitalFiauaatZXSYFUBEJPAN1247-34-42 16:00:00 Test Item Value Reference Range Interpretation Comments CO2 (test code = CO2) 28 24-32 [facility] HospitalZpmjvcwZNCRMSQICMRH5607-95-57 16:00:00 Test Item Value Reference Range Interpretation Comments Calcium Lvl (test code = Calcium Lvl) 8.6 8.5-10.5 [facility] HospitalXzvpqgpZWJHQWQRHDDU1418-98-70 16:00:00 Test Item Value Reference Range Interpretation Comments Total Protein (test code = Total 7.0 6.4-8.4 Protein) [facility] HospitalHajvzveUYGESSUZLXOC6225-11-15 16:00:00 Test Item Value Reference Range Interpretation Comments Albumin Lvl (test code = Albumin Lvl) 3.6 3.5-5.0 [facility] HospitalLxoyljeNCDEKVFKQVAB9801-93-54 16:00:00 Test Item Value Reference Range Interpretation Comments ALT (test code = ALT) 15 See_Comment [Auto mated message] The system which ge nerated this result transmit keith reference range : <=65. The reference range was not used to interpr et this result as chago l/abnormal. [facility] HospitalJfwerpqDCFOSGFVUEPU0447-25-68 16:00:00 Test Item Value Reference Range Interpretation Comments AST (test code = AST) 12 See_Comment [Auto mated message] The system which ge nerated this result transmit keith reference range : <=37. The reference range was not used to interpr et this result as chago l/abnormal. [facility] HospitalOdinfjuAZBZQCDGHWLA6653-33-44 16:00:00 Test Item Value Reference Range Interpretation Comments Alk Phos (test code = Alk Phos) 83 39-136 [facility] HospitalChjophhDLSSEMQYLWNQ8798-33-79 16:00:00 Test Item Value Reference Range Interpretation Comments Bili Total (test code = Bili Total) 0.7 0.2-1.3 [facility] HospitalDvnvlllFEEOCGITDPND3990-68-22 16:00:00 Test Item Value Reference Range Interpretation Comments Sodium Lvl (test code = Sodium Lvl) 141 135-145 [facility] HospitalVspegvrKTQORNTPIXIO9899-42-31 16:00:00 Test Item Value Reference Range Interpretation Comments BUN (test code = BUN) 12 7-22 [facility] HospitalJerowjlZRRDYEIXTLGH6604-74-27 16:00:00 Test Item Value Reference Range Interpretation Comments Glucose Lvl (test code = Glucose Lvl) 84 70-99 [facility] HospitalTbbjlgdRFJYWTNLIXGG3643-22-49 16:00:00 Test Item Value Reference Range Interpretation Comments Creatinine Lvl (test code = Creatinine 0.8 0.5-1.4 Lvl) [facility]DmhmxjuXQJCXKYDPS7845-73-55 16:00:00 Test Item Value Reference Range Interpretation Comments INR (test code = INR) 0.96 0.85-1.17 [facility] TylerJbqjonlLLORDMNEZA3000-64-39 16:00:00 Test Item Value Reference Range Interpretation Comments PTT (test code = PTT) 29.2 s 22.9-35.8 [facility] TylerKevdsmlTLBYQMCPMC0806-73-73 16:00:00 Test Item Value Reference Range Interpretation Comments PT (test code = PT) 12.7 s 12.0-14.7 [facility] TylerKznjxitWLWDHJGUVW4568-03-48 16:00:00 Test Item Value Reference Range Interpretation Comments MCH (test code = MCH) 31.3 pg 27.0-31.0 [facility] TylerCbyehazADTLEKDKPO6661-53-04 16:00:00 Test Item Value Reference Range Interpretation Comments MCHC (test code = MCHC) 33.9 32.0-36.0 [facility] TylerEiubzcaRABSZOQUAL2943-38-48 16:00:00 Test Item Value Reference Range Interpretation Comments RBC (test code = RBC) 4.14 4.20-5.40 [facility] TylerOaeguqtHRPKQEGDDU1458-62-26 16:00:00 Test Item Value Reference Range Interpretation Comments Hct (test code = Hct) 38.2 36.0-48.0 [facility] TylerKswwifrXJVBLHNMAP2225-95-58 16:00:00 Test Item Value Reference Range Interpretation Comments MCV (test code = MCV) 92.2 81.0-99.0 [facility] TylerJaafavdCZMAIQPFLI5514-36-67 16:00:00 Test Item Value Reference Range Interpretation Comments Hgb (test code = Hgb) 12.9 12.0-16.0 [facility] TylerLhkkznwXNBAAQKDKQ9866-77-67 16:00:00 Test Item Value Reference Range Interpretation Comments WBC (test code = WBC) 5.2 3.7-10.4 [facility] TylerJpwwsgqSMWRQXLLZP4425-33-56 16:00:00 Test Item Value Reference Range Interpretation Comments Platelet (test code = Platelet) 133 133-450 [facility] TylerNzktlfmJFIENTQPEJ2877-69-61 16:00:00 Test Item Value Reference Range Interpretation Comments MPV (test code = MPV) 8.8 7.4-10.4 [facility] TylerXpmtlqyJGQHBWTMNG0134-20-66 16:00:00 Test Item Value Reference Range Interpretation Comments RDW (test code = RDW) 15.3 11.5-14.5 [facility] TylerTxutkkjESTCQNAZBH2443-84-97 16:00:00 Test Item Value Reference Range Interpretation Comments Basophils (test code = 0.4 See_Comment [Aut omated message] The Basophils) system which ge nerated this result tra nsmitted reference range : <=1.0. The reference r yasmine was not used to int erpret this result as normal/abnormal . [facility] TylerKhxncukSXJFEYWEDF5980-02-46 16:00:00 Test Item Value Reference Range Interpretation Comments Basophils # (test code 0.0 See_Comment [Aut omated message] The = Basophils #) system which generated this result tra nsmitted reference range : <=0.2. The reference r yasmine was not used to int erpret this result as normal/abnormal . [facility] TylerYwgorguXTLGMPGCDA4213-49-54 16:00:00 Test Item Value Reference Range Interpretation Comments Monocytes # (test code 0.4 See_Comment [Aut omated message] The = Monocytes #) system which generated this result tra nsmitted reference range : <=0.8. The reference r yasmine was not used to int erpret this result as normal/abnormal . [facility] TylerAkswownMNPMGEBANB2765-71-26 16:00:00 Test Item Value Reference Range Interpretation Comments Lymphocytes # (test code = Lymphocytes 1.9 1.0-5.5 #) [facility] TylerOigemmlVTLHZFDSMJ0072-01-73 16:00:00 Test Item Value Reference Range Interpretation Comments Eosinophils # (test code 0.1 See_Comment [A utomated message] The = Eosinophils #) system whic h generated this result tra nsmitted reference range : <=0.5. The reference r yasmine was not used to int erpret this result as normal/abnormal . [facility] TylerIjhnkhhXNVDZNBVSL8392-61-62 16:00:00 Test Item Value Reference Range Interpretation Comments Segs-Bands # (test code = Segs-Bands #) 2.8 1.5-8.1 [facility] TylerQjrlqpyHJAGXYOZWD7195-42-61 16:00:00 Test Item Value Reference Range Interpretation Comments Segs (test code = Segs) 54.2 45.0-75.0 [facility] TylerJocarzmIPTRIFGXBL4844-80-28 16:00:00 Test Item Value Reference Range Interpretation Comments Lymphocytes (test code = Lymphocytes) 37.1 20.0-40.0 [facility] TylerBmmdspyHEPAEXTLUH3692-48-73 16:00:00 Test Item Value Reference Range Interpretation Comments Eosinophils (test code = 1.1 See_Comment [A utomated message] The Eosinophils) system which ge nerated this result tra nsmitted reference range : <=4.0. The reference r yasmine was not used to int erpret this result as normal/abnormal . [facility] TylerWpgefzjFPXVDHCARM9160-60-00 16:00:00 Test Item Value Reference Range Interpretation Comments Monocytes (test code = Monocytes) 7.2 2.0-12.0 [facility]PARATHYROID IYIUJGQ4960-07-98 16:00:00 Test Item Value Reference Range Interpretation Comments PTH Intact (test code = PTH Intact) 76.1 11.1-79.5 [facility]SPE[facility] XFEUDNLRD4296-97-14 16:00:00 Test Item Value Reference Range Interpretation Comments Hgb A1C (test code = Hgb A1C) 6.1 [facility] AND [id number] 15:40:31 Test Item Value Reference Range Interpretation Comments Micro? (test code = Performed *NA*(03/14/14 Micro?) 10:40 AM) [facility] AND [id number] 15:40:31 Test Item Value Reference Range Interpretation Comments UA Mucus (test code = UA Mucus) Few /LPF [facility] AND [id number] 15:40:31 Test Item Value Reference Range Interpretation Comments UA pH (test code = UA pH) 6.0 5.0-8.0 [facility] AND [id number] 15:40:31 Test Item Value Reference Range Interpretation Comments UA Spec Grav (test code = UA Spec Grav) 1.022 [facility] AND [id number] 15:40:31 Test Item Value Reference Range Interpretation Comments UA Turbidity (test code = Clear (03/14/14 10:40 UA Turbidity) AM) [facility] AND [id number] 15:40:31 Test Item Value Reference Range Interpretation Comments UA Glucose (test code = UA Negative mg/dL Glucose) [facility] AND [id number] 15:40:31 Test Item Value Reference Range Interpretation Comments UA Protein (test code = UA Protein) 10 mg/dL [facility] AND [id number] 15:40:31 Test Item Value Reference Range Interpretation Comments UA Color (test code = Yellow *NA*(03/14/14 UA Color) 10:40 AM) [facility] AND [id number] 15:40:31 Test Item Value Reference Range Interpretation Comments UA Sq Epi (test code = UA Sq Epi) Many /LPF [facility] AND [id number] 15:40:31 Test Item Value Reference Range Interpretation Comments UA WBC (test code = no gt See_Comment [Automa keith message] The UA WBC) system which ge nerated this result transmit keith reference range : <=5. The reference range was not used to interpr et this result as chago l/abnormal. [facility] AND [id number] 15:40:31 Test Item Value Reference Range Interpretation Comments UA RBC (test code = 2 See_Comment [Automa keith message] The UA RBC) system which ge nerated this result transmit keith reference range : <=2. The reference range was not used to interpr et this result as chago l/abnormal. [facility] AND [id number] 15:40:31 Test Item Value Reference Range Interpretation Comments UA Ketones (test code = UA Negative mg/dL Ketones) [facility] AND [id number] 15:40:31 Test Item Value Reference Range Interpretation Comments UA Bili (test code = Negative *NA*(03/14/14 UA Bili) 10:40 AM) [facility] AND [id number] 15:40:31 Test Item Value Reference Range Interpretation Comments UA Blood (test code = Negative (03/14/14 10:40 UA Blood) AM) [facility] AND [id number] 15:40:31 Test Item Value Reference Range Interpretation Comments UA Leuk Est (test Negative (03/14/14 10:40 code = UA Leuk Est) AM) [facility] AND [id number] 15:40:31 Test Item Value Reference Range Interpretation Comments UA Urobilinogen (test code = UA 2.0 0.1-1.0 Urobilinogen) [facility] AND [id number] 15:40:31 Test Item Value Reference Range Interpretation Comments UA Nitrite (test code Negative (03/14/14 10:40 = UA Nitrite) AM) [facility] AND [id number] 15:40:31 Test Item Value Reference Range Interpretation Comments Micro? (test code = Performed *NA*(03/14/14 Micro?) 10:40 AM) [facility] AND [id number] 15:40:31 Test Item Value Reference Range Interpretation Comments UA Mucus (test code = UA Mucus) Few /LPF [facility] AND [id number] 15:40:31 Test Item Value Reference Range Interpretation Comments UA pH (test code = UA pH) 6.0 5.0-8.0 [facility] AND [id number] 15:40:31 Test Item Value Reference Range Interpretation Comments UA Spec Grav (test code = UA Spec Grav) 1.022 [facility] AND [id number] 15:40:31 Test Item Value Reference Range Interpretation Comments UA Turbidity (test code = Clear (03/14/14 10:40 UA Turbidity) AM) [facility] AND [id number] 15:40:31 Test Item Value Reference Range Interpretation Comments UA Glucose (test code = UA Negative mg/dL Glucose) [facility] AND [id number] 15:40:31 Test Item Value Reference Range Interpretation Comments UA Protein (test code = UA Protein) 10 mg/dL [facility] AND [id number] 15:40:31 Test Item Value Reference Range Interpretation Comments UA Color (test code = Yellow *NA*(03/14/14 UA Color) 10:40 AM) [facility] AND [id number] 15:40:31 Test Item Value Reference Range Interpretation Comments UA Sq Epi (test code = UA Sq Epi) Many /LPF [facility] AND [id number] 15:40:31 Test Item Value Reference Range Interpretation Comments UA WBC (test code = no gt See_Comment [Automa keith message] The UA WBC) system which ge nerated this result transmit keith reference range : <=5. The reference range was not used to interpr et this result as chago l/abnormal. [facility] AND [id number] 15:40:31 Test Item Value Reference Range Interpretation Comments UA RBC (test code = 2 See_Comment [Automa keith message] The UA RBC) system which ge nerated this result transmit keith reference range : <=2. The reference range was not used to interpr et this result as chago l/abnormal. [facility] AND [id number] 15:40:31 Test Item Value Reference Range Interpretation Comments UA Ketones (test code = UA Negative mg/dL Ketones) [facility] AND [id number] 15:40:31 Test Item Value Reference Range Interpretation Comments UA Bili (test code = Negative *NA*(03/14/14 UA Bili) 10:40 AM) [facility] AND [id number] 15:40:31 Test Item Value Reference Range Interpretation Comments UA Blood (test code = Negative (03/14/14 10:40 UA Blood) AM) [facility] AND [id number] 15:40:31 Test Item Value Reference Range Interpretation Comments UA Leuk Est (test Negative (03/14/14 10:40 code = UA Leuk Est) AM) [facility] AND [id number] 15:40:31 Test Item Value Reference Range Interpretation Comments UA Urobilinogen (test code = UA 2.0 0.1-1.0 Urobilinogen) [facility] AND [id number] 15:40:31 Test Item Value Reference Range Interpretation Comments UA Nitrite (test code Negative (03/14/14 10:40 = UA Nitrite) AM) [facility]
--- NOTE | 2022-11-14 19:29 | RAD REPORT ---
EXAM DESCRIPTION: RAD - Chest Single View - 11/14/2022 7:18 pm CLINICAL HISTORY: PALPITATIONS COMPARISON: No comparisons FINDINGS: Lines: None. Lungs: No evidence of edema or pneumonia. Pleural: No significant pleural effusions or pneumothorax. Cardiac: The heart size is within normal limits. Mediastinum: Within normal limits. Bones: No acute fractures. Other: None IMPRESSION: No acute cardiopulmonary disease.
[2022-11-14 19:44] LABS: Absolute Lymphocytes (CBC) 1.3 K/uL (0.7-4.9); Hematocrit 36.5 % (36.0-45.0); Lymphocytes % 26.5 % (15.3-44.8); MCV 94.6 fL (80-100); MPV 7.6 fL (7.6-11.3); RBC Red Blood Cell Count 3.86 M/uL (3.86-4.86)
[2022-11-14 20:06] LABS: Magnesium 2.2 mg/dL (1.6-2.4); Potassium 4.3 mmol/L (3.5-5.1); Troponin High Sensitivity 5.9 pg/mL (<58.9)
[2022-11-14 20:43] LABS: Urine Blood Negative (Negative); Urine Glucose Negative (Negative); Urine Protein Negative (Negative); Urine Specific Gravity 1.015 (1.005-1.030)
[2022-11-14] MEDS ORDERED: ALBUTEROL 2.5 MG/3 ML NEB SOL ONE (21:05)
[2022-11-14] MEDS ORDERED: IPRATROPIUM BROM 0.5MG/2.5ML ONE (21:05)
--- NOTE | 2022-11-14 22:37 | ER ---
Nurse's Notes [facility] Name: Rebecca Castro Age: 61 yrs Sex: Female : 1960 Arrival Date: 11/14/2022 Time: 18:46 Bed 13 Private MD: Diagnosis: Palpitations;Dyspnea Presentation: 11/14 18:46 Chief complaint: EMS states: PALPITATIONS, DIZZINESS AND SOB WHILE WORKING AT [employer]. bp Coronavirus screen: At this time, the client does not indicate any symptoms associated with coronavirus-19. Ebola Screen: No symptoms or risks identified at this time. Initial Sepsis Screen: Does the patient meet any 2 criteria? No. Patient's initial sepsis screen is negative. Does the patient have a suspected source of infection? No. Patient's initial sepsis screen is negative. Risk Assessment: Do you want to hurt yourself or someone else? Patient reports no desire to harm self or others. Onset of symptoms was November 14, 2022 at 18:00. 18:46 Method Of Arrival: EMS: [facility] bp 18:46 Acuity: OLIVE 3 bp Historical: - Allergies: 18:51 No Known Allergies; bp - Home Meds: 18:51 Metoprolol Tartrate Oral [Active]; bp - PMHx: 18:51 DYSRYTHMIA; bp - Immunization history:: Adult Immunizations up to date. - Social history:: Smoking status: Patient denies any tobacco usage or history of. Screenin:00 [facility] ED Fall Risk Assessment (Adult) History of falling in the last 3 months, pf1 including since admission No falls in past 3 months (0 pts) Confusion or Disorientation No (0 pts) Intoxicated or Sedated No (0 pts) Impaired Gait No (0 pts) Mobility Assist Device Used No (0 pt) Altered Elimination No (0 pt) Score/Fall Risk Level 0 - 2 = Low Risk Oriented to surroundings, Maintained a safe environment, Educated pt \T\ family on fall prevention, incl call for assistance when getting out of bed, Assessed \T\ reinforced patient's understanding of fall precautions, Provided non-skid footwear, Hourly rounding (assess needs \T\ fall precautionary measures) done, Used ambulatory aids as needed (educated on \T\ assisted with), Used gait belt as appropriate. 19:00 Nutritional screening: No deficits noted. Tuberculosis screening: No symptoms or risk pf1 factors identified. 22:54 Abuse screen: Denies threats or abuse. pf1 Assessment: 19:00 General: Appears in no apparent distress. comfortable, well groomed, well developed, pf1 Behavior is calm, cooperative, appropriate for age, quiet. 19:00 Pain: Denies pain. Neuro: No deficits noted. 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 Respiratory: No deficits noted. Reports shortness of breath at work today Airway is patent Trachea midline Respiratory effort is even, unlabored, Respiratory pattern is regular, symmetrical. GI: No deficits noted. No signs and/or symptoms were reported involving the gastrointestinal system. Abdomen is round non-distended. : No deficits noted. No signs and/or symptoms were reported regarding the genitourinary system. EENT: Reports nasal congestion Patient stated onset for 5 days. Derm: No deficits noted. No signs and/or symptoms reported regarding the dermatologic system. 20:00 Reassessment: Patient appears in no apparent distress at this time. No changes from pf1 previously documented assessment. Patient and/or family updated on plan of care and expected duration. Pain level reassessed. Patient is alert, oriented x 3, equal unlabored respirations, skin warm/dry/pink. Patient states feeling better. Patient states symptoms have improved. 21:00 Reassessment: Patient appears in no apparent distress at this time. No changes from pf1 previously documented assessment. Patient and/or family updated on plan of care and expected duration. Pain level reassessed. Patient is alert, oriented x 3, equal unlabored respirations, skin warm/dry/pink. Patient states feeling better. Patient states symptoms have improved. 22:00 Reassessment: Patient appears in no apparent distress at this time. No changes from pf1 previously documented assessment. Patient and/or family updated on plan of care and expected duration. Pain level reassessed. Patient is alert, oriented x 3, equal unlabored respirations, skin warm/dry/pink. Patient denies pain at this time. Patient states feeling better. Patient states symptoms have improved. Vital Signs: 18:46 BP 122 / 87; Pulse 81; Resp 16; Temp 98; Pulse Ox 98% ; Weight 97.52 kg; Height 5 ft. 9 bp in. (175.26 cm); 19:00 BP 135 / 77; Pulse 75; Resp 18; Temp 98.1; Pulse Ox 99% on R/A; Pain 0/10; pf1 20:00 BP 108 / 77; Pulse 81; Resp 16; Pulse Ox 99% on R/A; Pain 0/10; pf1 20:44 BP 108 / 77 Supine; Pulse 88; Resp 16; Pulse Ox 100% ; Pain 0/10; pf1 20:45 BP 125 / 79 Sitting; Pulse 81; Resp 18; Pulse Ox 100% on R/A; Pain 0/10; pf1 20:46 BP 127 / 87 Standing; Pulse 93; Resp 18; Temp 98.3; Pulse Ox 100% on R/A; Pain 0/10; pf1 21:00 BP 111 / 90; Pulse 85; Resp 20; Pulse Ox 100% on R/A; Pain 0/10; pf1 22:00 BP 117 / 74; Pulse 88; Resp 16; Temp 98.5(O); Pulse Ox 100% on R/A; Pain 0/10; pf1 18:46 Body Mass Index 31.75 (97.52 kg, 175.26 cm) bp ED Course: 18:46 Patient arrived in ED. bp 18:47 Triage completed. bp 18:49 Sophia Medina [facility]-C [facility] kb 18:49 Benny Shore MD is Attending Physician. kb 18:55 Ever Leon, KISHORE is Primary Nurse. bp 19:00 Arm band placed on left wrist. pf1 19:00 Patient has correct armband on for positive identification. Placed in gown. Bed in low pf1 position. Call light in reach. 19:20 XRAY Chest (1 view) In Process Unspecified. EDMS 19:30 No provider procedures requiring assistance completed. Inserted saline lock: 20 gauge pf1 in left antecubital area, using aseptic technique. Blood collected. 20:34 Primary Nurse role handed off by Ever Leon, KISHORE wm 20:38 Cassandra moody, KISHORE is Primary Nurse. pf1 22:54 IV discontinued, intact, bleeding controlled, No redness/swelling at site. Pressure pf1 dressing applied. Administered Medications: 21:06 Drug: Albuterol 2.5 mg Route: Inhalation; pf1 21:53 Follow up: Response: No adverse reaction; Marked relief of symptoms pf1 21:06 Drug: AtroVENT (ipratropium) Aerosol 0.5 mg Route: Inhalation; pf1 21:53 Follow up: Response: No adverse reaction; Marked relief of symptoms pf1 Medication: 20:00 VIS not applicable for this client. pf1 Outcome: 22:36 Discharge ordered by . kb 22:52 Discharged to home ambulatory, with family. pf1 22:52 Condition: improved 22:52 Discharge instructions given to patient, family, Instructed on discharge instructions, follow up and referral plans. Demonstrated understanding of instructions, follow-up care. 22:54 Patient left the ED. pf1 Signatures: Dispatcher [employer] EDMS Sophia Medina, Ever Carpenter RN RN Ursula Tomlin Pamala, RN RN pf1 Corrections: (The following items were deleted from the chart) 08 01:16 01/07 22:00 BP 117 / 74; Pulse 88bpm; Resp 16bpm; Pulse Ox 100% RA; Pain 0/10; pf1 pf1
--- NOTE | 2022-11-14 22:38 | EDPHYS ---
Physician Documentation [facility] Name: Rebecca Castro Age: 61 yrs Sex: Female : 1960 Arrival Date: 11/14/2022 Time: 18:46 Bed 13 Private MD: ED Physician Benny Shore HPI: 11/15 00:42 This 61 yrs old Black Female presents to ER via EMS with complaints of Palpitations. kb 11/14 20:50 Patient reports area was diesel spilled on the ground at work and she started feeling kb short of breath when she was sitting around the fumes and then began to panic causing palpitations, dizziness. States she had this multiple times in the past but since that happened at work she was told she needed to be checked out. Reports all symptoms resolved except she feels congested.. 11/15 00:42 The patient presents with a history of heart racing. Context: The symptoms occur at kb rest. Onset: The symptoms/episode began/occurred just prior to arrival. Duration: The patient or guardian reports a single episode, that is now resolved. Modifying factors: The symptoms are aggravated by nothing. The symptoms are alleviated by nothing. Associated signs and symptoms: Pertinent positives: anxiety, SOB. Severity of symptoms: At their worst the symptoms were moderate in the emergency department the symptoms have resolved. The patient has not experienced similar symptoms in the past. The patient has not recently seen a physician. Historical: - Allergies: 11/14 18:51 No Known Allergies; bp - Home Meds: 18:51 Metoprolol Tartrate Oral [Active]; bp - PMHx: 18:51 DYSRYTHMIA; bp - Immunization history:: Adult Immunizations up to date. - Social history:: Smoking status: Patient denies any tobacco usage or history of. ROS: 20:50 Constitutional: Negative for fever, chills, and weight loss. kb 20:50 Cardiovascular: Positive for palpitations. 20:50 Respiratory: Positive for shortness of breath. 20:50 Neuro: Positive for dizziness. 20:50 All other systems are negative. Exam: 20:49 Constitutional: This is a well developed, well nourished patient who is awake, alert, kb and in no acute distress. Head/Face: Normocephalic, atraumatic. ENT: Moist Mucous membranes Cardiovascular: Regular rate and rhythm with a normal S1 and S2. No gallops, murmurs, or rubs. No pulse deficits. Respiratory: Respirations even and unlabored. No increased work of breathing. Talking in full sentences Abdomen/GI: Soft, non-tender. No distention Skin: Warm, dry with normal turgor. Normal color. MS/ Extremity: Pulses equal, no cyanosis. Neurovascular intact. Full, normal range of motion. Neuro: Awake and alert, GCS 15, oriented to person, place, time, and situation. Moves all extremities. Normal gait. Psych: Awake, alert, with orientation to person, place and time. Behavior, mood, and affect are within normal limits. 20:49 ECG was reviewed by the Attending Physician. Vital Signs: 18:46 BP 122 / 87; Pulse 81; Resp 16; Temp 98; Pulse Ox 98% ; Weight 97.52 kg; Height 5 ft. 9 bp in. (175.26 cm); 19:00 BP 135 / 77; Pulse 75; Resp 18; Temp 98.1; Pulse Ox 99% on R/A; Pain 0/10; pf1 20:00 BP 108 / 77; Pulse 81; Resp 16; Pulse Ox 99% on R/A; Pain 0/10; pf1 20:44 BP 108 / 77 Supine; Pulse 88; Resp 16; Pulse Ox 100% ; Pain 0/10; pf1 20:45 BP 125 / 79 Sitting; Pulse 81; Resp 18; Pulse Ox 100% on R/A; Pain 0/10; pf1 20:46 BP 127 / 87 Standing; Pulse 93; Resp 18; Temp 98.3; Pulse Ox 100% on R/A; Pain 0/10; pf1 21:00 BP 111 / 90; Pulse 85; Resp 20; Pulse Ox 100% on R/A; Pain 0/10; pf1 22:00 BP 117 / 74; Pulse 88; Resp 16; Temp 98.5(O); Pulse Ox 100% on R/A; Pain 0/10; pf1 18:46 Body Mass Index 31.75 (97.52 kg, 175.26 cm) bp MDM: 18:49 Patient medically screened. kb 11/15 00:42 Data reviewed: vital signs, nurses notes. Data interpreted: Pulse oximetry: on room air kb is 100 %. Interpretation: normal. 00:43 Differential diagnosis: arrythmia, dehydration, stress disorder. Counseling: I had a kb detailed discussion with the patient and/or guardian regarding: the historical points, exam findings, and any diagnostic results supporting the discharge/admit diagnosis, lab results, radiology results, the need for outpatient follow up, a family practitioner, to return to the emergency department if symptoms worsen or persist or if there are any questions or concerns that arise at home. ED course: Diagnostic test considered but not performed: CT chest to rule out PE considered but D-dimer is normal and oxygen saturations under percent. History obtained from: Patient. . 11/14 18:50 Order name: Basic Metabolic Panel; Complete Time: 20:14 kb 11/14 18:50 Order name: CBC with Diff; Complete Time: 19:48 kb 11/14 18:50 Order name: D-Dimer; Complete Time: 19:54 kb 11/14 18:50 Order name: Magnesium; Complete Time: 20:14 kb 11/14 18:50 Order name: NT PRO-BNP; Complete Time: 20:14 kb 11/14 18:50 Order name: Troponin HS; Complete Time: 20:14 kb 11/14 18:50 Order name: XRAY Chest (1 view); Complete Time: 19:43 kb 11/14 18:50 Order name: EKG; Complete Time: 18:50 kb 11/14 18:50 Order name: Cardiac monitoring; Complete Time: 20:38 kb 11/14 18:50 Order name: EKG - Nurse/Tech; Complete Time: 20:38 kb 11/14 18:50 Order name: IV Saline Lock; Complete Time: 20:38 kb 11/14 20:43 Order name: Urine Dipstick-Ancillary; Complete Time: 20:44 EDMS 11/14 18:50 Order name: Labs collected and sent; Complete Time: 20:38 kb 11/14 18:50 Order name: O2 Per Protocol; Complete Time: 18:56 kb 11/14 18:50 Order name: O2 Sat Monitoring; Complete Time: 18:56 kb 11/14 18:50 Order name: Orthostatics; Complete Time: 20:50 kb 11/14 18:50 Order name: Urine Dipstick-Ancillary (obtain specimen); Complete Time: 20:43 kb EC/07 20:49 Rate is 69 beats/min. Rhythm is regular. QRS [place] is Normal. UT interval is normal at kb 184 msec. QRS interval is normal at 76 msec. QT interval is normal at 430 msec. Administered Medications: 21:06 Drug: Albuterol 2.5 mg Route: Inhalation; pf1 21:53 Follow up: Response: No adverse reaction; Marked relief of symptoms pf1 21:06 Drug: AtroVENT (ipratropium) Aerosol 0.5 mg Route: Inhalation; pf1 21:53 Follow up: Response: No adverse reaction; Marked relief of symptoms pf1 Disposition: 11/15 15:09 Co-signature as Attending Physician, Benny Shore MD. rn Disposition Summary: 11/14/22 22:36 Discharge Ordered Location: Home kb Condition: Stable kb Diagnosis - Palpitations kb - Dyspnea kb Followup: kb - With: Emergency Department - When: As needed - Reason: Worsening of condition Followup: kb - With: Private Physician - When: 2 - 3 days - Reason: Recheck today's complaints, Continuance of care, Re-evaluation by your physician Discharge Instructions: - Discharge Summary Sheet kb - Shortness of Breath, Adult, Bkjj-he-[id number] kb - Panic Attack, Yzju-tv-Cowg kb - Palpitations, Vozu-eo-Urne kb Forms: - Medication Reconciliation Form kb - Thank You Letter kb - Antibiotic Education kb - Prescription Opioid Use kb Signatures: Dispatcher [employer] EDMS Sophia Medina, [employer]OM[employer]SEMBLER AND ADJUSTER-C CHRONOMETER ASSEMBLER AND ADJUSTER-Benny Saldana MD MD rn Peltier, Brian, Cassandra Yao RN, RN RN pf1 Corrections: (The following items were deleted from the chart) 00:43 11/14 20:50 Patient reports area was diesel spilled on the ground at work and she kb started feeling short of breath when she was sitting around the fumes and then began to panic causing palpitations, dizziness. States she had this multiple times in the past but since that happened at work she was told she needed to be checked out. kb
[2022-11-15 00:16] VITALS: O2SAT 100
[2022-11-15 00:18] VITALS: BP 127/87; TEMP 98.3
--- NOTE | 2022-11-16 16:30 | EKG ---
Test Date: 2022-11-14 Test Time: 19:26:58 Dry Chain Operator: RODRIGUEZ MEASUREMENT RESULTS: Intervals: Rate: 69 MI: 184 QRSD: 76 QT: 402 QTc: 430 Guy: P: 38 MI: 184 QRS: -10 T: 53 INTERPRETIVE STATEMENTS: Normal sinus rhythm Moderate voltage criteria for LVH, may be normal variant Borderline ECG No previous ECG available for comparison Electronically Signed On 11-16-22 16:28:05 [employer] by Gio Celestin
== END 2022-11-14 22:54 | disposition home or self-care (01) ==
LOC: ER 18:31
DX: R00.2 Palpitations (principal); R06.00 Dyspnea, unspecified
CPT/HCPCS: 93005; 85025; 80048; 36415; 83735; 85379; 81003; 84484; 83880; 71045; 99284; J7613; J7644